=== PATIENT | female | born 1975 | race Two or more races ===

== ENCOUNTER 2024-09-14 11:28 | Emergency (ER) | payer OTHER, SELFPAY ==
--- NOTE | ~2024-09-14 | XR_ITS ---
CLINICAL HISTORY: cough 2 view chest x-ray Comparison: None Findings: The lungs are clear. Normal size heart. No acute fracture. IMPRESSION: 1. No acute findings. This document has been electronically signed by: Brionna Chaudhary MD on 09/14/2024 12:59:34
[2024-09-14 11:42] VITALS: BP 128/96; PULSE 67; RESP 18; TEMP 36.8; O2SAT 100; BMI 20.2
--- NOTE | 2024-09-14 11:45 | ED.GENADULT ---
HPI - General Adult General Chief complaint: Upper Respiratory Symptoms Stated complaint: back pain, cough, sob Time Seen by Provider: 09/14/24 15:09 Source: patient Mode of arrival: ambulatory Limitations: no limitations History of Present Illness ED Provider: soheila crockett pa-c HPI narrative: 48 year old female with no significant pmhx presents to the ED today for evaluation of dry cough, subjective fevers, and chills x3 days. No known sick contacts. She did take a negative COVID test 3 days ago. She also reports lower back pain. No known injury, trauma, fall. Denies dysuria, hematuria, abdominal pain, N/V/D. Related Data Previous Rx's ?Medication ?Instructions ?Recorded benzonatate 100 mg capsule 100 mg PO BID PRN cough #20 caps 09/14/24 nitrofurantoin 100 mg PO BID 7 days #14 caps 09/14/24 monohydrate/macrocrystals 100 mg capsule oseltamivir 75 mg capsule (Tamiflu) 75 mg PO BID 5 days #10 caps 09/14/24 Allergies Allergy/AdvReac Type Severity Reaction Status Date / Time latex [Latex] Allergy Intermediate RASH Verified 09/14/24 11:44 FRUIT Allergy Unknown RASH, Uncoded 05/13/20 16:50 DIFFICULTY BREATHING Review of Systems Review of Systems: Constitutional: No fever, fatigue, night sweats, weight changes, +chills ENT/Mouth: No ear pain, hearing loss, nasal congestion, sinus pain, rhinorrhea, sore throat Eyes: No eye pain, swelling, redness, vision changes, discharge Cardio: No chest pain, palpitations, BELCHER, orthopnea, peripheral edema Pulm: No SOB, cough, sputum, wheezing, dyspnea, hemoptysis, +cough GI: No nausea, vomiting, hematemesis, abdominal pain, diarrhea, constipation, hematochezia, melena : No irregular bleeding, dysuria, frequency, urgency, hesitancy, hematuria, flank pain, urinary flow changes, urinary incontinence or retention MSK: No neck pain, joint pain, myalgias, +back pain Skin: No lesions, rashes Neuro: No weakness, numbness, paresthesias, LOC, dizziness, headache Psych: No anxiety/panic, depression, SI/HI, AH/VH All other systems reviewed and are negative. [facility] Past Medical History Attestation statement: The following information was validated with the patient. Source: old records reviewed and nursing notes reviewed Social History Social History Advance Directives: No Advance Directives Information Provided: No Physical Exam ED Vital Signs: Vital Signs - 24 hr 09/14/24 11:42 09/14/24 15:49 Temperature 98.3 F 98.3 F Pulse Rate 67 67 Respiratory Rate 18 18 Blood Pressure 128/96 H 128/96 H Pulse Oximetry 100 100 Oxygen Delivery Method Room Air Room Air BMI result Body Mass Index 20.2 Vital signs stable General: Well appearing, in no acute distress. Skin: Warm, dry, intact. No rashes or lesions. Head: Normocephalic, atraumatic. EENT: Hearing is intact b/l. Conjunctiva clear. PERRLA. Moist mucous membranes.? Posterior oropharynx without erythema or edema. No tonsillar exudates or masses. Uvula midline. Controlling secretions and speaking in complete sentences. Neck: Supple without LAD Cardiac: Chest wall symmetric. RRR Lungs: Normal respiratory effort without accessory muscle use. CTA bilaterally. No rales, rhonchi, or wheezes.? Abdomen: Soft, non-tender, non-distended. No rebound tenderness or guarding. Positive BS x4. No CVAT. Back: No midline spinous or paraspinal tenderness. No step off deformity. Ext: Upper and lower extremities atraumatic, without tenderness, deformity, swelling or erythema. Full ROM throughout. Neuro: AOx3. Normal speech. Strength 5/5 intact throughout. Sensation intact to light touch. NV intact distally. Reflexes 2+ bilaterally. Ambulating with steady gait. Psych: Appropriate mood and affect. Responds appropriately to questions. Course Course Course Narrative: CBC without leukocytosis or left shift. No anemia. H&H stable. Chemistry without acute electrolyte abnormality requiring intervention. No DEANDRE. Liver function slightly elevated. Urine positive for infection. She tested positive for influenza A. Negative for COVID, RSV. Chest x-ray does not demonstrate pneumonia. > discussed all workup results with patient. After discussion, she was opted to start Tamiflu which has been sent to her pharmacy. Dinh Rodriguez sent to pharmacy for cough. Nitrofurantoin sent to pharmacy for UTI. advised to f/u with PCP. Patient has remained stable throughout ED visit today. Discussed worrisome signs and symptoms and when to return to the ED. All questions answered at this time. Patient is agreeable with disposition and stable for discharge. Medical Decision Making Medical Decision Making [facility] Narrative: 48 year old female with no significant pmhx presents to the ED today for evaluation of dry cough, subjective fevers, and chills x3 days. Patient is hypertensive. Afebrile. She is nontoxic-appearing and in no acute distress. On exam, lungs are CTA bilaterally. no signs of respiratory distress. Abdominal exam benign. There is no CVAT bilaterally. No midline spinous tenderness or step-off deformity. Neurovascularly intact distally. Differential diagnosis includes viral syndrome, strep throat, headache, migraine, pneumonia, bronchitis, UTI, renal colic, nephrolithiasis, MSK sprain/strain. 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 Plan for basic labs, viral swabs, urinalysis, chest x-ray and re-evaluation. Differential Diagnosis Differential Diagnoses: The differential diagnosis associated with the presentation includes As above Admission/Observation Not indicated Lab Data [facility] Lab Attestation statement: I reviewed the patient's lab results. As above 09/14/24 13:09 09/14/24 13:09 Labs: Lab Results 09/14/24 Range/Units 13:09 WBC 4.2 L (4.8-10.8) X10*3/uL RBC 4.60 (4.20-5.50) X10*6/uL Hgb 13.6 (12.0-16.0) g/dl Hct 39.8 (37.0-47.0) % MCV 86.5 (80.0-98.0) fL MCH 29.6 (27.0-33.0) pg MCHC 34.2 (31.0-35.0) g/dl RDW 13.2 (11.0-16.0) % Plt Count 203 (160-400) X10*3/uL MPV 10.2 (9.4-12.3) fL Immature Gran % (Auto) 0.2 (0.0-0.4) % Neut % (Auto) 59.2 (45-73) % Lymph % (Auto) 21.5 (20-40) % [place] % (Auto) 18.6 H (2-11) % Eos % (Auto) 0.0 (0-4) % Baso % (Auto) 0.5 (0-2) % Lymph # (Auto) 0.9 L (1.2-4.9) X10*3/uL [place] # (Auto) 0.8 (0.1-1.2) X10*3/uL Eos # (Auto) 0.0 (0.0-0.4) X10*3/uL Baso # (Auto) 0.0 (0.0-0.2) X10*3/uL Abs Immat Gran (auto) 0.01 (0.00-0.03) X10*3/uL Absolute Neuts (auto) 2.5 (2.0-8.3) x10*3/uL Absolute Nucleated RBC 0.000 (0.0-0.012) X10*3/uL Nucleated RBC % (auto) 0.0 (0.0-0.2) /100WBC Sodium 139 (135-145) mmol/L Potassium 4.4 (3.3-5.1) mmol/L Chloride 104 (96-108) mmol/L Carbon Dioxide 27 (22-29) mmol/L Anion Gap 12 (12-20) BUN 11 (9-16) mg/dL Creatinine 0.71 (0.5-1.4) mg/dL Estim Creat Clear Calc 88.9 Estimated GFR > 60 Random Glucose 94 (60-115) mg/dL Calcium 9.0 (8.4-10.2) mg/dL Magnesium 2.1 (1.6-2.6) mg/dL Total Bilirubin 0.4 (0.0-1.0) mg/dL AST 46 H (5-31) U/L ALT 49 H (0-31) U/L Alkaline Phosphatase 83 (39-117) U/L Total Protein 7.9 (6.5-8.0) g/dL Albumin 4.3 (3.5-5.0) g/dL Urine Color Yellow Urine Appearance Cloudy Urine pH 6.0 (5.0-9.0) Ur Specific Stokes 1.010 (1.005-1.025) Urine Protein Negative (Neg-Trace) mg/dL Urine Glucose (UA) Negative (Negative) mg/dL Urine Ketones Negative (Negative) mg/dL Urine Blood Small (1+) H (Negative) Urine Nitrite Negative (Negative) Ur Leukocyte Esterase Large (3+) H (Negative) Urine RBC 0-2 (0-2) /HPF Urine WBC 21-50 H (0-5) /HPF Ur Squamous Epith Cells 6-10 (0-2) /HPF Urine Bacteria 2+ (None Seen) Hyaline Casts 0-2 (0-2) /LPF Influenza Type A (PCR) POSITIVE A (Negative) Influenza Type B (PCR) NEGATIVE (Negative) RSV RNA Qual (PCR) NEGATIVE (Negative) SARS-CoV-2 RNA (RT-PCR) NEGATIVE (Negative) Independent Interpretation I performed an independent interpretation of an: Plain X-Ray Interpretation: cxr without infiltrate or consolidation Radiology Impression Discussion of test interpretation with radiology: I have reviewed the radiologist's reading. Radiologist Impression: Ordering Physician: Soheila Crockett Date of Service: 09/14/24 Procedure(s): XR chest 2V Accession Number(s): [id number] cc: Physician,None ; Soheila Crockett~ CLINICAL HISTORY: cough 2 view chest x-ray Comparison: None Findings: The lungs are clear. Normal size heart. No acute fracture. IMPRESSION: 1. No acute findings. This document has been electronically signed by: Brionna Chaudhary MD on 09/14/2024 12:59:34 External Record Review External record reviewed: Inpatient record Social Determinants Patient?s care significantly limited by Social Determinants of Health including: Other Social Determinant of Health Critical Care Time Critical Care Time Critical Care Time: No Discharge Plan Discharge Clinical Impression: Influenza A, Urinary tract infection Patient Disposition: Home, Self-Care Instructions: Urinary Tract Infection in Women (ED), Influenza (ED) Additional Instructions: You tested positive for influenza a today. This is contagious. You have opted to be treated with Tamiflu. This has been sent to your pharmacy. I have also send Tesleatha Rodriguez to help with your cough. Your blood work is reassuring. Your chest x-ray does not demonstrate pneumonia. Your urine does show infection and thus she will be treated with antibiotics. Nitrofurantoin is an antibiotic that has been sent to your pharmacy. Take this as prescribed and do not miss any doses. You must complete the entire course of antibiotics. If you do not, there is a risk of the infection coming back or worsening. Follow up with your primary care provider as needed. If you develop a fever or new/ worsening symptoms call 911 or come back to the ER for further evaluation. Prescriptions: New benzonatate 100 mg capsule 100 mg PO BID PRN (Reason: cough) Qty: 20 0RF oseltamivir [Tamiflu] 75 mg capsule 75 mg PO BID 5 Days Qty: 10 0RF nitrofurantoin monohyd/m-cryst 100 mg capsule 100 mg PO BID 7 Days Qty: 14 0RF Rx Instructions: must administer with a meal/food Stand Alone Forms: Work/School Release Interventions: ED Discharge Assessment Last Done: 09/14/24 15:49 Discharge Date/Time: 09/14/24 15:50 Print Language: Thai
[2024-09-14 13:14] LABS: MANUAL DIFF FLAG NO
[2024-09-14 13:15] LABS: Basophils Percent Auto 0.5 % (0-2); Hematocrit 39.8 % (37.0-47.0); Hemoglobin 13.6 g/dl (12.0-16.0); Imm Gran Abs Auto 0.01 X10*3/uL (0.00-0.03); Imm Gran Pct Auto 0.2 % (0.0-0.4); Lymphocytes Absolute Auto 0.9 X10*3/uL (1.2-4.9); Lymphocytes Percent Auto 21.5 % (20-40); Mean Corpuscular HGB Conc 34.2 g/dl (31.0-35.0); Mean Corpuscular Hemoglobin 29.6 pg (27.0-33.0); Mean Corpuscular Volume 86.5 fL (80.0-98.0); Mean Platelet Volume 10.2 fL (9.4-12.3); Monocytes Absolute Auto 0.8 X10*3/uL (0.1-1.2); Monocytes Percent Auto 18.6 % (2-11); Neutrophils Absolute Auto 2.5 x10*3/uL (2.0-8.3); Neutrophils Percent Auto 59.2 % (45-73); Platelet Count 203 X10*3/uL (160-400); Red Cell Distribution Width 13.2 % (11.0-16.0); White Blood Count 4.2 X10*3/uL (4.8-10.8)
[2024-09-14 13:16] LABS: Appearance Urine Cloudy; Color Urine Yellow; Glucose Urine UA Negative (Negative); Leukocyte Esterase Urine Large (3+) (Negative); Nitrite Urine Negative (Negative); UMIC TRIGGER UACC YES; Urine Blood Small (1+) (Negative); Urine Ketones Negative (Negative); Urine Protein Negative (Neg-Trace)
[2024-09-14 13:28] LABS: Bacteria Urine 2+ (None Seen); Hyaline Casts Urine 0-2 /LPF (0-2); RBC Urine 0-2 /HPF (0-2); UACC Culture Trigger YES; WBC Urine 21-50 /HPF (0-5)
[2024-09-14 13:32] LABS: Alanine Aminotransferase 49 U/L (0-31); Albumin Level 4.3 g/dL (3.5-5.0); Alkaline Phosphatase 83 U/L (39-117); Anion Gap 12 (12-20); Aspartate Amino Transferase 46 U/L (5-31); Bilirubin Total 0.4 mg/dL (0.0-1.0); Blood Urea Nitrogen 11 mg/dL (9-16); Carbon Dioxide 27 mmol/L (22-29); Chloride 104 mmol/L (96-108); Creatinine Clr Calc Pharmacy 88.9; Estimated Glomerular Filt Rate > 60; Glucose Random 94 mg/dL (60-115); Magnesium 2.1 mg/dL (1.6-2.6); Potassium 4.4 mmol/L (3.3-5.1); Sodium 139 mmol/L (135-145); Total Protein 7.9 g/dL (6.5-8.0)
[2024-09-14 13:54] LABS: Influenza A PCR POSITIVE (Negative); Influenza B PCR NEGATIVE (Negative); Resp Syncy Virus RNA Qual PCR NEGATIVE (Negative); SARS COV2 PCR INHOUSE NEGATIVE (Negative)
[2024-09-14 15:49] VITALS: BP 128/96; PULSE 67; RESP 18; TEMP 36.8; O2SAT 100
== END 2024-09-14 15:50 | disposition home or self-care (01) ==
PROVIDERS: Physician Assistant Medical; Emergency Provider Emergency Medicine
DX: J10.1 Influenza due to other identified influenza virus with other respiratory manifestations (principal); N39.0 Urinary tract infection, site not specified; M54.50 Low back pain, unspecified; R05.9 Cough, unspecified; R06.02 Shortness of breath; R50.9 Fever, unspecified; Z03.818 Encounter for observation for suspected exposure to other biological agents ruled out
CPT/HCPCS: 0241U; 71046; 80053; 81001; 83735; 85025; 87086; 99282; 99283

== ENCOUNTER → 2024-09-14 11:44 | Outpatient (BNV) | payer OTHER, SELFPAY | PROVIDERS: Visit Provider Nuclear Medicine | DX: R05.9 Cough, unspecified (principal) | CPT/HCPCS: 71046 ==

== ENCOUNTER 2024-11-14 19:51 | Emergency (ER) | payer MEDICAID, SELFPAY ==
--- NOTE | ~2024-11-14 | XR_ITS ---
CLINICAL HISTORY: cough, sob, cp 2 view chest x-ray. Comparison: CR - XR CHEST 2V - 09/14/24 12:34 EST Findings: Normal lung volumes. Lungs are clear. No pneumothorax or pleural effusion. Heart size normal. No passive venous congestion. No midline shift or tracheal deviation. No acute fracture. Impression: 1. No acute cardiopulmonary disease. This document has been electronically signed by: Bandar Ordonez MD on 11/14/2024 21:30:33
[2024-11-14 19:56] VITALS: BP 147/83; PULSE 72; RESP 18; TEMP 36.9; O2SAT 99; BMI 21.3
--- NOTE | 2024-11-14 19:56 | ED_ITS ---
HPI - Chest Pain General Chief Complaint: Upper Respiratory Symptoms Stated Complaint: SOB, cough Time Seen by Provider: 11/14/24 22:09 Source: patient Mode of arrival: ambulatory Limitations: no limitations History of Present Illness ED Provider: CHAITANYA WARE PA-C HPI narrative: 49 year old female with pmhx significant for HTN and bradycardia presents to the ED today for evaluation of cough productive of yellow/brown sputum, chest tightness on coughing, nasal congestion, and headache x5 days. 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 Denies fever, chills, sore throat, chest pain, hemoptysis, SOB, wheezing. No recent travel. Vaccinations UTD. Related Data Previous Rx's ?Medication ?Instructions ?Recorded benzonatate 100 mg capsule 100 mg PO BID PRN cough #20 caps 09/14/24 nitrofurantoin 100 mg PO BID 7 days #14 caps 09/14/24 monohydrate/macrocrystals 100 mg capsule oseltamivir 75 mg capsule (Tamiflu) 75 mg PO BID 5 days #10 caps 09/14/24 azithromycin 250 mg tablet See Rx Instructions PO .COMPLEX #6 11/14/24 tabs guaifenesin 200 mg tablet 200 mg PO TID PRN cough #10 tabs 11/14/24 prednisone 20 mg tablet 40 mg (2 x 20 mg) PO DAILY 5 days 11/14/24 #10 tabs Allergies Allergy/AdvReac Type Severity Reaction Status Date / Time latex [Latex] Allergy Intermediate RASH Verified 11/14/24 19:58 FRUIT Allergy Unknown RASH, Uncoded 11/14/24 19:58 DIFFICULTY BREATHING Review of Systems 2 Review of Systems: Yes all other systems are reviewed and are negative [facility] Past Medical History Attestation statement: The following information was validated with the patient. Source: old records reviewed and nursing notes reviewed Social History Social History Smoked in Last 30 Days: No Use of substances other than those prescribed or required for medical reasons: Yes Substance Use Type: Marijuana Advance Directives: No Advance Directives Information Provided: No Patient : No Physical Exam 2 Vital Signs: Vital Signs: Last Vital Signs Temp 98.5 F 11/14/24 23:07 Pulse 57 11/14/24 23:07 Resp 18 11/14/24 23:07 BP 135/82 11/14/24 23:07 Pulse Ox 98 11/14/24 23:07 O2 Del Method Room Air 11/14/24 23:07 BMI result Body Mass Index 21.3 vitals stable. afebrile. not hypoxic. General: Well appearing, in no acute distress. Skin: Warm, dry, intact. No rashes or lesions. Head: Normocephalic, atraumatic. EENT: Hearing is intact b/l. Conjunctiva clear. PERRLA. EOM intact. Moist mucous membranes.? Neck: Supple without LAD Cardiac: Chest wall symmetric. RRR Lungs: Normal respiratory effort without accessory muscle use. CTA bilaterally. No rales, rhonchi, or wheezes.? Ext: Upper and lower extremities atraumatic, without tenderness, deformity, swelling or erythema. Neuro: AOx3. Normal speech. Ambulating with steady gait. Course Course Course Narrative: This is a Rapid Medical Exam performed in triage by Mayda Krueger PA-C. Full HPI, ROS and PE to be performed by primary ED provider. 49yo F w/pmhx HTN, bradycardia presenting to the ED c/o chest tightness, SOB, congestion, cough, HERNÁNDEZ, & R hand numbness x3 days. Has been out of Rx meds x months after moving PE: lungs CTA, dry cough noted, nontoxic appearing Plan: EKG, labs, CXR, SARs Reevaluation(s) Reevaluation #1: CBC without leukocytosis or left shift. no anemia, h&h stable. bmp w/o acute electrolyte abnormality requiring intervention. magnesium wnl. trop undetectable. ekg showing sinus bradycardia, no acute ischemic changes. ACS unlikely. negative covid, flu, rsv, strep. cxr without pneumonia or effusion. > plan to treat for bronchitis. prednisone, guafenesin, zpack sent to pharmacy. Patient has remained stable throughout ED visit today. Discussed worrisome signs and symptoms and when to return to the ED. All questions answered at this time. Patient is agreeable with disposition and stable for discharge. Medical Decision Making Medical Decision Making MDM Narrative: 49 year old female with pmhx significant for HTN and bradycardia presents to the ED today for evaluation of cough productive of yellow/brown sputum, chest tightness on coughing, nasal congestion, and headache x5 days. vitals are stable. she is not hypoxic, afebrile. she is nontoxic appearing and in NAD. no respiratory distress. lungs are CTA w/o adventitious breath sounds. Differential diagnosis includes viral syndrome, bronchitis, pneumonia. Lower suspicion for ACS. PERC 0 - PE unlikely. Labs, ekg, cxr, and viral swabs obtained from triage - plan to review. Differential Diagnosis Differential Diagnoses: The differential diagnosis associated with the presentation includes as above. Admission/Observation not indicated. Lab Data MDM Lab Attestation statement: I reviewed the patient's lab results. as above. 11/14/24 20:13 11/14/24 20:13 Labs: Lab Results 11/14/24 11/14/24 Range/Units 04:31 20:13 WBC 6.0 (4.8-10.8) X10*3/uL RBC 4.32 (4.20-5.50) X10*6/uL Hgb 12.7 (12.0-16.0) g/dl Hct 36.8 L (37.0-47.0) % MCV 85.2 (80.0-98.0) fL MCH 29.4 (27.0-33.0) pg MCHC 34.5 (31.0-35.0) g/dl RDW 13.1 (11.0-16.0) % Plt Count 188 (160-400) X10*3/uL MPV 11.0 (9.4-12.3) fL Immature Gran % (Auto) 0.5 H (0.0-0.4) % Neut % (Auto) 50.0 (45-73) % Lymph % (Auto) 36.1 (20-40) % Andrews % (Auto) 8.7 (2-11) % Eos % (Auto) 4.0 (0-4) % Baso % (Auto) 0.7 (0-2) % Lymph # (Auto) 2.2 (1.2-4.9) X10*3/uL [place] # (Auto) 0.5 (0.1-1.2) X10*3/uL Eos # (Auto) 0.2 (0.0-0.4) X10*3/uL Baso # (Auto) 0.0 (0.0-0.2) X10*3/uL Abs Immat Gran (auto) 0.03 (0.00-0.03) X10*3/uL Absolute Neuts (auto) 3.0 (2.0-8.3) x10*3/uL Absolute Nucleated RBC 0.000 (0.0-0.012) X10*3/uL Nucleated RBC % (auto) 0.0 (0.0-0.2) /100WBC Sodium 140 (135-145) mmol/L Potassium 3.9 (3.3-5.1) mmol/L Chloride 105 (96-108) mmol/L Carbon Dioxide 27 (22-29) mmol/L Anion Gap 12 (12-20) BUN 8 L (9-16) mg/dL Creatinine 0.79 (0.5-1.4) mg/dL Estim Creat Clear Calc 82.4 Estimated GFR > 60 Random Glucose 103 (60-115) mg/dL Calcium 8.9 (8.4-10.2) mg/dL Magnesium 1.9 (1.6-2.6) mg/dL Total Bilirubin 0.2 (0.0-1.0) mg/dL Direct Bilirubin < 0.2 (0.0-0.5) mg/dL AST 25 (5-31) U/L ALT 19 (0-31) U/L Alkaline Phosphatase 86 (39-117) U/L Troponin I High Sens < 2.7 (<3.5-17.0) ng/L Total Protein 7.0 (6.5-8.0) g/dL Albumin 3.8 (3.5-5.0) g/dL Influenza Type A (PCR) NEGATIVE (Negative) Influenza Type B (PCR) NEGATIVE (Negative) RSV RNA Qual (PCR) NEGATIVE (Negative) SARS-CoV-2 RNA (RT-PCR) NEGATIVE (Negative) S. pyogenes GrpA EARL Negative (Negative) Independent Interpretation I performed an independent interpretation of an: EKG and Plain X-Ray Interpretation: CXR without focal consolidation or infiltrate EKG showing sinus bradycardia w/ rate of 57bpm, no acute ischemic changes or ST elevations Radiology Impression Discussion of test interpretation with radiology: I have reviewed the radiologist's reading. Radiologist Impression: [address] [address] XRay Report Signed Patient: Carolyn Mauricio MR#: [id number] : 1975 Acct:[id number] Age/Sex: 49 / F ADM Date: 11/14/24 Loc: HO.ED Attending Dr: Ordering Physician: Mayda Krueger Date of Service: 11/14/24 Procedure(s): XR chest 2V Accession Number(s): [id number] cc: Physician,None ; Mayda Krueger~ CLINICAL HISTORY: cough, sob, cp 2 view chest x-ray. Comparison: CR - XR CHEST 2V - 09/14/24 12:34 EST Findings: Normal lung volumes. Lungs are clear. No pneumothorax or pleural effusion. Heart size normal. No passive venous congestion. No midline shift or tracheal deviation. No acute fracture. Impression: 1. No acute cardiopulmonary disease. This document has been electronically signed by: Bandar Ordonez MD on 11/14/2024 21:30:33 External Record Review External record reviewed: Inpatient record Prescription Management I considered prescription management with: Antibiotic (zpak) and Other (guafenesin, prednisone) Chronic Conditions Patient?s care impacted by: Hypertension Social Determinants Patient?s care significantly limited by Social Determinants of Health including: Other Social Determinant of Health Critical Care Time Critical Care Time Critical Care Time: No Discharge Plan Discharge Clinical Impression: Bronchitis Patient Disposition: Home, Self-Care Instructions: Acute Bronchitis (ED) Additional Instructions: Your blood work today is reassuring. You tested negative for COVID, flu, RSV. Your chest x-ray does not show pneumonia. You are being treated for bronchitis. Prednisone as a steroid that has been sent to your pharmacy. Take this as prescribed over the next 5 days. Azithromycin as an antibiotic that has been sent to your pharmacy. Take this as prescribed over the next 5 days. Guaifenesin has been sent to your pharmacy for you to take for cough. Follow up with outpatient providers. Return with new or worsening symptoms. In the case of an emergency call 911. Prescriptions: New azithromycin 250 mg tablet See Rx Instructions .ROUTE .COMPLEX Qty: 6 0RF Rx Instructions: For 250 mg dose pack: take 500 mg today (day 1), then 250 mg for 4 days (days 2-5) guaifenesin 200 mg tablet 200 mg PO TID PRN (Reason: cough) Qty: 10 0RF prednisone 20 mg tablet 40 mg PO DAILY 5 Days Qty: 10 0RF No Action benzonatate 100 mg capsule 100 mg PO BID PRN (Reason: cough) Qty: 20 0RF oseltamivir [Tamiflu] 75 mg capsule 75 mg PO BID 5 Days Qty: 10 0RF nitrofurantoin monohyd/m-cryst 100 mg capsule 100 mg PO BID 7 Days Qty: 14 0RF Rx Instructions: must administer with a meal/food Referrals: Physician,None [Primary Care Provider] - Stand Alone Forms: Work/School Release Interventions: ED Discharge Assessment Last Done: 11/14/24 23:07 Discharge Date/Time: 11/14/24 23:07 Print Language: Kuwaiti
--- NOTE | 2024-11-14 19:58 | ECG_ITS ---
Test Reason : CHEST PAIBN Blood Pressure : */* mmHG Vent. Rate : 57 BPM Atrial Rate : 57 BPM P-R Int : 136 ms QRS Dur : 84 ms QT Int : 432 ms P-R-T Axes : 50 83 41 degrees QTcB Int : 420 ms Sinus bradycardia Otherwise normal ECG When compared with ECG of 01-Apr-2009 22:06, No significant change was found Referred By: Mayda Krueger Electronically Signed By: Kee Corea
[2024-11-14 20:23] LABS: MANUAL DIFF FLAG NO
[2024-11-14 20:34] LABS: IDNOW Serial# 58CA691E; Strep A Nucleic Acid Negative (Negative)
[2024-11-14 20:42] LABS: Alanine Aminotransferase 19 U/L (0-31); Albumin Level 3.8 g/dL (3.5-5.0); Alkaline Phosphatase 86 U/L (39-117); Anion Gap 12 (12-20); Aspartate Amino Transferase 25 U/L (5-31); Bilirubin Direct < 0.2 mg/dL (0.0-0.5); Bilirubin Total 0.2 mg/dL (0.0-1.0); Blood Urea Nitrogen 8 mg/dL (9-16); Calcium 8.9 mg/dL (8.4-10.2); Carbon Dioxide 27 mmol/L (22-29); Chloride 105 mmol/L (96-108); Creatinine Clr Calc Pharmacy 82.4; Estimated Glomerular Filt Rate > 60; Glucose Random 103 mg/dL (60-115); Magnesium 1.9 mg/dL (1.6-2.6); Potassium 3.9 mmol/L (3.3-5.1); Sodium 140 mmol/L (135-145)
[2024-11-14 20:44] LABS: Basophils Percent Auto 0.7 % (0-2); Eosinophils Absolute Auto 0.2 X10*3/uL (0.0-0.4); Hematocrit 36.8 % (37.0-47.0); Hemoglobin 12.7 g/dl (12.0-16.0); Imm Gran Abs Auto 0.03 X10*3/uL (0.00-0.03); Imm Gran Pct Auto 0.5 % (0.0-0.4); Lymphocytes Absolute Auto 2.2 X10*3/uL (1.2-4.9); Lymphocytes Percent Auto 36.1 % (20-40); Mean Corpuscular HGB Conc 34.5 g/dl (31.0-35.0); Mean Corpuscular Hemoglobin 29.4 pg (27.0-33.0); Mean Corpuscular Volume 85.2 fL (80.0-98.0); Monocytes Absolute Auto 0.5 X10*3/uL (0.1-1.2); Monocytes Percent Auto 8.7 % (2-11); Platelet Count 188 X10*3/uL (160-400); Red Blood Count 4.32 X10*6/uL (4.20-5.50); Red Cell Distribution Width 13.1 % (11.0-16.0)
[2024-11-14 20:49] LABS: Troponin-I High Sensitivity < 2.7 ng/L (<3.5-17.0)
[2024-11-14 21:04] LABS: Influenza A PCR NEGATIVE (Negative); Influenza B PCR NEGATIVE (Negative); Resp Syncy Virus RNA Qual PCR NEGATIVE (Negative); SARS COV2 PCR INHOUSE NEGATIVE (Negative)
[2024-11-14 21:28] VITALS: BP 135/82; PULSE 57; RESP 18; TEMP 36.9; O2SAT 98
[2024-11-14 23:07] VITALS: BP 135/82; PULSE 57; RESP 18; TEMP 36.9; O2SAT 98
== END 2024-11-14 23:07 | disposition home or self-care (01) ==
PROVIDERS: Physician Assistant; Emergency Provider Emergency Medicine
DX: J40 Bronchitis, not specified as acute or chronic (principal); R07.89 Other chest pain; R00.1 Bradycardia, unspecified; R06.02 Shortness of breath; R05.9 Cough, unspecified; R09.81 Nasal congestion; R20.0 Anesthesia of skin; Z03.818 Encounter for observation for suspected exposure to other biological agents ruled out
CPT/HCPCS: 0241U; 71046; 80048; 80076; 83735; 84484; 85025; 87651; 93005; 99283; 99284

== ENCOUNTER → 2024-11-14 19:58 | Outpatient (BNV) | payer MEDICAID, SELFPAY | PROVIDERS: Visit Provider Radiology Diagnostic Radiology | DX: R05.9 Cough, unspecified (principal); R06.02 Shortness of breath; R07.9 Chest pain, unspecified | CPT/HCPCS: 71046 ==

== ENCOUNTER → 2024-11-14 19:58 | Outpatient (BNV) | payer MEDICAID, SELFPAY | PROVIDERS: Emergency Provider Emergency Medicine; Visit Provider Internal Medicine Cardiovascular Disease | DX: R00.1 Bradycardia, unspecified (principal) | CPT/HCPCS: 93010 ==

== ENCOUNTER 2024-11-25 15:02 | Outpatient (REF) | payer MEDICAID, SELFPAY ==
[2024-11-25 16:07] LABS: MANUAL DIFF FLAG NO
[2024-11-25 16:37] LABS: Basophils Absolute Auto 0.1 X10*3/uL (0.0-0.2); Basophils Percent Auto 0.8 % (0-2); Eosinophils Absolute Auto 0.2 X10*3/uL (0.0-0.4); Eosinophils Percent Auto 3.2 % (0-4); Imm Gran Abs Auto 0.02 X10*3/uL (0.00-0.03); Imm Gran Pct Auto 0.3 % (0.0-0.4); Lymphocytes Absolute Auto 2.9 X10*3/uL (1.2-4.9); Lymphocytes Percent Auto 48.8 % (20-40); Mean Corpuscular HGB Conc 33.3 g/dl (31.0-35.0); Mean Corpuscular Volume 87.1 fL (80.0-98.0); Mean Platelet Volume 11.2 fL (9.4-12.3); Monocytes Absolute Auto 0.5 X10*3/uL (0.1-1.2); Monocytes Percent Auto 8.6 % (2-11); Neutrophils Absolute Auto 2.3 x10*3/uL (2.0-8.3); Neutrophils Percent Auto 38.3 % (45-73); Platelet Count 238 X10*3/uL (160-400); Red Blood Count 4.82 X10*6/uL (4.20-5.50); Red Cell Distribution Width 12.9 % (11.0-16.0); White Blood Count 5.9 X10*3/uL (4.8-10.8)
--- OUTSIDE RECORDS SUMMARY | 2024-11-25 17:52 | XMS_ITS | Clinical Summary ---
Author Organization [facility] Address [address] [place] [address] Care Team Providers Care Semiautomatic Stitcher Operator Name Role Phone Unknown Primary Care Provider [phone] Allergies Active Allergy Reactions Criticality Noted Date Comments Avocado Hives Medium 11/14/2022 Banana Hives Medium 11/14/2022 Cheyenne Hives Medium 11/14/2022 Latex Hives Medium 11/14/2022 Dani Hives Medium 11/14/2022 Medications Medication Sig Dispensed Refills Start Date End Date Status amoxicillin (AMOXIL) 500 MG capsule Take 1 capsule (500 mg total) by mouth 2 (two) times a day. 20 capsule 12/06/2022 Active Social History Tobacco Use Types Packs/Day Years Used Date Smoking Tobacco: Former Cigarettes Smokeless Tobacco: Never Tobacco Cessation:Counseling Given: Not Answered Sex and Gender Information Value Date Recorded Sex Assigned at Female 12/06/2022 12:53 PM EDT Gender Identity Female 12/06/2022 12:53 PM EDT Sexual Orientation Choose not to disclose 2022 12:53 PM EDT Last Filed Vital Signs Vital Sign Reading Time Taken Comments Blood Pressure 139/84 12/06/2022 4:56 PM EDT Pulse 76 12/06/2022 4:56 PM EDT Temperature 36.3 ??C (97.4 ??F) 12/06/2022 4:56 PM ED T Respiratory Rate 18 12/06/2022 4:56 PM EDT Oxygen Saturation 100% 12/06/2022 4:56 PM EDT Inhaled Oxygen Concentration - - Weight - - Height - - Body Mass Index - - Plan of Treatment Health Maintenance Due Date Last Done Comments Hepatitis C Virus Screening 1975 HIV Screening 1990 DTaP/Tdap/Td Vaccines (1 - Tdap) 1996 Hepatitis B Vaccines (1 of 3 - 19+ 3-dose series) 1996 Pap Smear (Ages 21-65) 1998 Mammogram 2017 Colonoscopy 2022 Influenza Vaccine 03/27/2024 COVID-19 Vaccine (1 - 2023-2 5 season) 2024 Pneumococcal Vaccine: Pediat rubén (0-5 Years) and At-Risk Patients (6 to 49 Years) Aged Out No longer eligible b ased on patient's age to complete this topic Care Teams Semiautomatic Stitcher Operator Relationship Specialty Start Date End Date Unknown Unknow Provider Address PCP - General 12/06/22
--- OUTSIDE RECORDS SUMMARY | 2024-11-25 17:52 | XMS_ITS | Continuity of Care Document ---
Author Organization [facility] vices Address [address] [place] [address] Phone Care Team Providers Care Marketing Director Name Role Phone Generic Provider, [facility] Unavailable Unavailabl e Allergies, Adverse Reactions, Alerts Substance Reaction Status Criticality matthew Active No Information avocado Active No Information banana Active No Information Clare And Derivatives Active No In formation latex Active No Information Medications Medication Instructions Dosage Effective Dates (start - stop) Status Comments Vazalore 81 mg capsule take 1 capsule by oral route every day 81 MG - Active arginine (L-arginine) 500 mg tablet [id number] mg twice a day PO - Active [...] Diagnoses Date Provider Providers Copied on Encounter [facility], [address] [place], [address], [place] tel:[phone] [facility] Adult Medicine No Information 4 Generic Provider [facility]. . [facility], [address] [place], [address], [place] tel:[phone] [facility] Dental No Information 3 Andres Grimes. [address] [facility], [id number] [place], [place], [id number], [place]. 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 [address] [facility], [id number] [place], [address], [place]. tel:[phone] OFFICE/OUTPT Visit, NEW - Mod MDM, 45 - 59 Minutes [facility], [address] [place] [address], [address], [place] tel:[phone] [facility] Adult Medicine ESTABLISH CARE (chief complaint) Body [...] relative Payers Payer name Insurance type Covered libertarian ID Miller doss(s) D Medicaid [id number] Social History Type Description Quantity Date Captured [...] completed Referral Ordered: Referrals: Location: [facility] Dental ordered Referral Ordered: Referrals: Location: [facility] Behavioral Health ordered History Of Present Illness Encounter Date Complaint History Of Prese 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
--- OUTSIDE RECORDS SUMMARY | 2024-11-25 17:52 | XMS_ITS ---
Author Name [facility] Organization Unknown Encounters Encounter Type Encounter Reason Primary Diagnosis Location Date Emergency Acute pharyngiti s, unspecified [facility] 12/06/2022 Care Team Organization Name Specialty Phone Email Start Date End [facility] [place] [facility] 05/19/2023 024 [facility] 12/06/2022 12/06/2022 [facility] 12/06/2022 [facility] 07/16/2022
[2024-11-25 18:04] LABS: Alanine Aminotransferase 17 U/L (0-31); Albumin Level 4.1 g/dL (3.5-5.0); Alkaline Phosphatase 80 U/L (39-117); Anion Gap 9 (12-20); Aspartate Amino Transferase 23 U/L (5-31); Bilirubin Total 0.3 mg/dL (0.0-1.0); Blood Urea Nitrogen 9 mg/dL (9-16); Calcium 9.4 mg/dL (8.4-10.2); Carbon Dioxide 28 mmol/L (22-29); Chloride 107 mmol/L (96-108); Estimated Glomerular Filt Rate > 60; Glucose Random 102 mg/dL (60-115); Potassium 3.9 mmol/L (3.3-5.1); Sodium 140 mmol/L (135-145); Total Protein 6.9 g/dL (6.5-8.0)
[2024-11-25 18:08] LABS: TSH reflex Free T4 0.67 uIU/mL (0.32-4.0)
== END 2024-11-25 15:03 | disposition home or self-care (01) ==
LOC: HO.HHCL 15:02
PROVIDERS: Visit Provider Internal Medicine
DX: R03.0 Elevated blood-pressure reading, without diagnosis of hypertension (principal)
CPT/HCPCS: 36415; 80053; 84443; 85025

== ENCOUNTER → 2024-11-28 09:50 | Outpatient (REF) | payer MEDICAID, SELFPAY ==
--- OUTSIDE RECORDS SUMMARY | 2024-11-28 11:01 | XMS_ITS | Encounter Summary ---
Author Organization [employer] Address [address] [facility] [address] [place] [address] Care Team Providers Care Business Integration Manager Name Role Phone Unavailable Primary Care Provider Unavailabl e Encounter Details Date Type Department Care Team (Latest Contact Info) Description 11/25/2024 Travel Social History Tobacco Use Types Packs/Day Years Used Date Smoking Tobacco: Former Cigarettes Smokeless Tobacco: Never Alcohol Use Standard Drinks/Week Comments Not Currently 0 (1 standard drink = 0.6 oz pur e alcohol) Comments Unknown Sex and Gender Information Value Date Recorded Sex Assigned at Female 11/25/2024 2:08 PM EDT Legal Sex Female 3:51 PM EST Gender Identity Female 11/25/2024 2:08 PM EDT Sexual Orientation Straight 11/25/2024 2: 08 PM EDT documented as of this encounter Plan of Treatment Upcoming Encounters Date Type Department Care Team (Late st Contact Info) Description 12/09/2024 2:00 PM EDT Clinical Support [facility] [address] [place] [phone] 01/09/2025 9:15 AM EDT Office Visit [facility] [address] [place] [address] Carole Galeas MD [address] [place] [phone] documented as of this encounter Visit Diagnoses Not on filedocumented in this encounter
--- OUTSIDE RECORDS SUMMARY | 2024-11-28 11:01 | XMS_ITS | Continuity of Care Document ---
Author Organization [facility] vices Address [address] [place] [address] Phone Care Team Providers Care Regulatory Auditor Name Role Phone Generic Provider, [facility] Unavailable Unavailabl e Allergies, Adverse Reactions, Alerts Substance Reaction Status Criticality matthew Active No Information avocado Active No Information banana Active No Information [place] And Derivatives Active No In formation latex Active No Information Medications Medication Instructions Dosage Effective Dates (start - stop) Status Comments arginine (L-arginine) 500 mg tablet [id number] mg twice a day PO - Active Vazalore 81 mg capsule take 1 capsule by oral route every day 81 MG - Active Procedures Procedure Date Prophylaxis-Adult Oral [...] Diagnoses Date Provider Providers Copied on Encounter [facility], [address] [place], [address], [place] tel:[phone] [facility] Adult Medicine No Information 4 Generic Provider [facility]. . [facility], [address] [place], [address], [place] tel:[phone] [facility] Dental No Information 3 Andres Grimes. [address] [facility], [id number] [place], [place], [id number], [place]. 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 [address] [facility], [id number] [place], [address], [place]. tel:[phone] OFFICE/OUTPT Visit, NEW - Mod MDM, 45 - 59 Minutes [facility], [address] [place] [address], [address], [place] tel:[phone] [facility] Adult Medicine ESTABLISH CARE (chief complaint) Body [...] relative Payers Payer name Insurance type Covered alliance party ID Miller doss(s) D Medicaid [id number] Social History Type Description Quantity Date Captured [...] and counseling completed Referral Ordered: Referrals: Location: [facility] Dental ordered Referral Ordered: Referrals: Location: [facility] Behavioral Health ordered History Of Present Illness Encounter Date Complaint History Of Prese nt 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 She recently moved back here from [place] but is taking 10 mg of amlodipine [...]
--- OUTSIDE RECORDS SUMMARY | 2024-11-28 11:01 | XMS_ITS | Encounter Summary ---
Author Organization [employer] Address [address] [facility] 7t [place] [address] Care Team Providers Care Caramel Coloring Operator Name Role Phone Unavailable Primary Care Provider Unavailabl e Reason for Referral * Cardiology (Routine) - Authorized Specialty Diagnoses / Procedures Referred By Juan t Referred To Contact Cardiology Diagnoses Sinus bradycardia Procedures Holter monitor - 48 hour Carole Galeas MD [address] [place] [address] Phone: tel: fax: [address] Phone: tel: fax: Referral ID Status Reason Start Date Expiration Date V isits Requested Visits Authorized [id number] Authorized 11/25/2024 11/25/2025 1 1 * Consultation (Routine) - Authorized Specialty Diagnoses / Procedures Referred By Juan amos Referred To Contact Cardiology Diagnoses Sinus bradycardia Carole Galeas MD [address] [place] [address] Phone: tel: fax: [address] Phone: tel: fax: Referral ID Status Reason Start Date Expiration Date Visits Requested Visits Authorized [id number] Authorized Specialty Services Required 11/25/2024 11/25/2025 6 6 Reason for Visit * Reason Comments Hypertension Encounter Details Date Type Department Care Team (Late st Contact Info) Description 11/25/2024 2:20 PM EDT Office Visit [facility] [address] [place], [place] [phone] Carole Galeas MD [address] [place], [place] [phone] Primary hypertension (Primary Dx); Sinus bradycardia; Elevated blood pressure reading Social History Tobacco Use Types Packs/Day Years Used Date Smoking Tobacco: Former Cigarettes Smokeless Tobacco: Never Tobacco Cessation:Counseling Given: Not Answered Alcohol Use Standard Drinks/Week Comments Not Currently 0 (1 standard drink = 0.6 oz pur e alcohol) Comments Unknown Sex and Gender Information Value Date Recorded Sex Assigned at Female 11/25/2024 2:08 PM EDT Legal Sex Female 3:51 PM EST Gender Identity Female 11/25/2024 2:08 PM EDT Sexual Orientation Straight 11/25/2024 2: 08 PM EDT documented as of this encounter Last Filed Vital Signs Vital Sign Reading Time Taken Comments Blood Pressure 168/102 11/25/2024 2:50 PM EDT Pulse 53 11/25/2024 2:14 PM EDT Temperature 36.3 ??C (97.4 ??F) 11/25/2024 2:14 PM ED T Respiratory Rate 18 11/25/2024 2:14 PM EDT Oxygen Saturation 100% 11/25/2024 2:14 PM EDT Inhaled Oxygen Concentration - - Weight 60.2 kg (132 lb 12.8 oz) 11/25/2024 2:14 PM EDT Height - - Body Mass Index - - documented in this encounter Progress Notes * Carole Galeas MD - 11/25/2024 2:20 PM EDT SUBJECTIVE: Carolyn Mauricio is a 49 y.o. 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 Denies recent illness, injury, or hospitalization. PMH HTN, arrhythmia. PSH Cholecystectomy 2021 Hysterectomy+? BSOO 2005 due to endometriosis. 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 She has not been on HRT. Soc Hx she works at [employer]. Lives with her 3 children and her lives in [place]. She hasan ex-smoker, currently smokes THC daily, does not drink alcohol or uses any other recreational substances. FamHx Father from liver CA. Next line mother has HTN and arrhythmia. Maternal aunts had DM, HTN. Meds: None at this time, does not recall the name of the medications. Acute Concerns: Patient concerned regarding elevated BP at home running 160s-200s/90-100 for the past 1 to 2 months. She has been feeling lightheaded with occasional headache especially elevated at night, negative exertional chest pain, BELCHER, blurred vision. She has history of hypertension previously on medication until May when she moved in to [place] and has been out of medications. She does not have history of CAD, CKD, CVA. Social History Social History Narrative Works at [employer]. Lives with adult children ages 19-26 Patient Active Problem List Diagnosis Primary hypertension Sinus bradycardia Family History Problem Relation Name Age of Onset Arrhythmia Mother Other (htn) Mother Review of Systems Constitutional: Negative for chills, fatigue and fever. HENT: Negative for congestion, ear pain, nosebleeds, rhinorrhea, sinus pressure, sore throat and trouble swallowing. Eyes: Negative for pain and discharge. Respiratory: Negative for cough, chest tightness and shortness of breath. Cardiovascular: Negative for chest pain, palpitations and leg swelling. Gastrointestinal: Negative for abdominal pain, blood in stool, constipation, diarrhea and nausea. Endocrine: Negative for polydipsia and polyuria. Genitourinary: Negative for dysuria, frequency, genital sores, pelvic pain and vaginal discharge. Musculoskeletal: Negative for back pain and neck pain. Skin: Negative for rash. Allergic/Immunologic: Negative for environmental allergies. Neurological: Positive for light-headedness and headaches. Negative for dizziness, seizures and weakness. Hematological: Negative for adenopathy. Psychiatric/Behavioral: Negative for agitation, behavioral problems, self-injury and suicidal ideas. OBJECTIVE: Vitals: 11/25/24 1414 11/25/24 1450 BP: (!) 194/102 (!) 168/102 BP Location: Left arm Right arm Patient Position: Sitting BP Cuff Size: Adult Pulse: 53 Resp: 18 Temp: 97.4 ??F (36.3 ??C) TempSrc: Temporal SpO2: 100% Weight: 132 lb 12.8 oz (60.2 kg) Physical Exam HENT: Right Ear: Tympanic membrane and ear canal normal. Left Ear: Tympanic membrane and ear canal normal. Mouth/Throat: Mouth: Mucous membranes are moist. Pharynx: No oropharyngeal exudate or posterior oropharyngeal erythema. Eyes: Pupils: Pupils are equal, round, and reactive to light. Cardiovascular: Rate and Rhythm: Regular rhythm. Pulses: Normal pulses. Heart sounds: Normal heart sounds. No murmur heard. Pulmonary: Breath sounds: Normal breath sounds. Abdominal: General: Bowel sounds are normal. Palpations: Abdomen is soft. Tenderness: There is no abdominal tenderness. Musculoskeletal: General: Normal range of motion. Cervical back: Neck supple. Skin: General: Skin is warm. Neurological: General: No focal deficit present. Mental Status: She is alert and oriented to person, place, and time. Psychiatric: Mood and Affect: Mood normal. Behavior: Behavior normal. Encounter Date: 11/25/24 ECG 12 lead Narrative Sinus bradycardia at 42 bpm, normal axis, No ST / T abn. No ischemic changes or other arrhythmias Problem List Items Addressed This Visit Primary hypertension - Primary Uncontrolled, she is off medications. Start lisinopril 10 mg and follow-up BP with RN in 2 to 3 weeks and with your PCP in 1 to 2 months. Counseled re low salt diet/increase moderate physical activity. Check home BP BIW (she has BP machine at home) and prn CP/HERNÁNDEZ/BELCHER. She should go immediately to ED if she develops exertional chest pain, BELCHER, pleural effusion, severe headache that does not improve with medications or any neurological deficits Order labs She is an ex-smoker, advised to cut down THC smoking Relevant Orders ECG 12 lead Sinus bradycardia Avoid beta-blockers, will attempt to control hypertension and follow-up on symptoms. Advised to go to ED if she develops persistent palpitations, persistent lightheadedness, dyspnea orchest pain Order Holter monitor and refer to cardiology Relevant Orders Referral to Cardiology Holter monitor - 48 hour Other Visit Diagnoses Elevated blood pressure reading Relevant Orders Comprehensive Metabolic Panel TSH with Reflex to Free T4 CBC auto differential Follow Up: No current outpatient medications on file prior to visit. No current facility-administered medications on file prior to visit. documented in this encounter Miscellaneous Notes * Assessment & Plan Note - Carole Galeas MD - 11/25/2024 3:07 PM EDT Associated Problem(s): Sinus bradycardia Avoid beta-blockers, will attempt to control hypertension and follow-up on symptoms. Advised to go to ED if she develops persistent palpitations, persistent lightheadedness, dyspnea orchest pain Order Holter monitor and refer to cardiology * Assessment & Plan Note - Carole Galeas MD - 11/25/2024 3:05 PM EDT Associated Problem(s): Primary hypertension Uncontrolled, she is off medications. Start lisinopril 10 mg and follow-up BP with RN in 2 to 3 weeks and with your PCP in 1 to 2 months. Counseled re low salt diet/increase moderate physical activity. Check home BP BIW (she has BP machine at home) and prn CP/HERNÁNDEZ/BELCHER. She should go immediately to ED if she develops exertional chest pain, BELCHER, pleural effusion, severe headache that does not improve with medications or any neurological deficits Order labs She is an ex-smoker, advised to cut down THC smoking documented in this encounter Plan of Treatment Upcoming Encounters Date Type Department Care Team (Late st Contact Info) Description 12/09/2024 2:00 PM EDT Clinical Support [facility] [address] [place] [phone] 01/09/2025 9:15 AM EDT Office Visit [facility] [address] [place] [address] Carole Galeas MD [address] [place] [address] Scheduled Orders Name Type Priority Associated Diagnoses Orde r Schedule Holter monitor - 48 hour Cardiac Services Routine Sinus bradycardia Expected: 11/25/2024 (Approximate), Expires: 11/25/2026 Scheduled Referrals Name Type Priority Associated Diagnoses Orde r Schedule Referral to Cardiology Outpatient Referral Routine Sinus bradycardia Expected: 11/25/2024 (Approximate), Expires: 11/25/2025 documented as of this encounter Procedures Procedure Name Priority Date/Time Associated Diagnosis Comments ECG 12-LEAD Routine 11/25/2024 3:13 PM EDT Primary hypertension TSH W/REFLEX TO FT4 Routine 11/25/2024 3 :04 PM EDT Elevated blood pressure reading CBC WITH AUTO DIFFERENTIAL Routine 11/25/2024 3:04 PM EDT Elevated blood pressure reading COMPREHENSIVE METABOLIC PANEL Routine 11/25/2024 3:04 PM EDT Elevated blood pressure reading documented in this encounter Results * ECG 12 lead (11/25/2024 3:13 PM EDT) Carole Pelayo MD - 11/25/2024 3:13 PM EDT Sinus bradycardia at 42 bpm, normal axis, No ST / T abn. No ischemic changes or other arrhythmias us Carole Galeas MD ECG ORDERABLES Final Re sult * (ABNORMAL) CBC auto differential (11/25/2024 3:04 PM EDT) White Blood Count 5.9 4.8 - 10.8 X10*3/uL [facility] Red Blood Count 4.82 4.20 - 5.50 X10*6/uL [facility] Hemoglobin 14.0 12.0 - 16.0 g/dl [facility] Hematocrit 42.0 37.0 - 47.0 % [facility] Mean Corpuscular Volume 87.1 80.0 - 98.0 fL [facility] Mean Corpuscular Hemoglobin 29.0 27.0 - 33.0 pg [facility] Mean Corpuscular HGB Conc 33.3 31.0 - 35.0 g/dl [facility] Red Cell Distribution Width 12.9 11.0 - 16.0 % [facility] Platelet Count 238 160 - 400 X10*3/uL [facility] Mean Platelet Volume 11.2 9.4 - 12.3 fL [facility] Neutrophils Percent Auto 38.3(L) 45 - 73 % [facility] Imm Gran Pct Auto 0.3 0.0 - 0.4 % [facility] Lymphocytes Percent Auto 48.8(H) 20 - 40 % [facility] Monocytes Percent Auto 8.6 2 - 11 % [facility] Eosinophils Percent Auto 3.2 0 - 4 % [facility] Basophils Percent Auto 0.8 0 - 2 % [facility] NRBC Pct Auto 0.0 0.0 - 0.2 /100WBC [facility] Neutrophils Absolute Auto 2.3 2.0 - 8.3 x10*3/uL [facility] Imm Gran Abs Auto 0.02 0.00 - 0.03 X10*3/uL [facility] Lymphocytes Absolute Auto 2.9 1.2 - 4.9 X10*3/uL [facility] Monocytes Absolute Auto 0.5 0.1 - 1.2 X10*3/uL [facility] Eosinophils Absolute Auto 0.2 0.0 - 0.4 X10*3/uL [facility] Basophils Absolute Auto 0.1 0.0 - 0.2 X10*3/uL [facility] NRBC Abs Auto 0.000 0.0 - 0.012 X10*3/uL [facility] Blood Venous blood specimen / Unknown 11/25/2024 3:04 PM EDT 11/25/2024 4:05 PM EDT us Carole Galeas MD LAB BLOOD ORDERABLES Fin al Result [facility] [address] [place] [phone] * TSH with Reflex to Free T4 (11/25/2024 3:04 PM EDT) TSH reflex Free T4 0.67 0.32 - 4.0 uIU/mL [facility] Blood 11/25/2024 3:04 PM EDT 11/25/2024 4:05 PM EDT us Carole Galeas MD LAB BLOOD ORDERABLES Fin al Result [facility] [address] [place] [phone] [phone] * (ABNORMAL) Comprehensive Metabolic Panel (11/25/2024 3:04 PM EDT) Sodium 140 135 - 145 mmol/L [facility] Potassium 3.9 3.3 - 5.1 mmol/L [facility] Chloride 107 96 - 108 mmol/L [facility] Carbon Dioxide 28 22 - 29 mmol/L [facility] Anion Gap 9(L) 12 - 20 [facility] Urea Nitrogen (BUN) 9 9 - 16 mg/dL [facility] Creatinine, Serum 0.69 0.5 - 1.4 mg/dL [facility] Estimated Glomerular Filt Rate >60 [facility] Comment:Chronic Kidney Disea se: Estimated GFR < 60 mL/min/[id number] Kidney Disease: Estimated GFR < 15 mL/min/1.73m2 Glucose 102 60 - 115 mg/dL [facility] Calcium 9.4 8.4 - 10.2 mg/dL [facility] Bilirubin, Total 0.3 0.0 - 1.0 mg/dL [facility] Aspartate Amino Transferase 23 5 - 31 U/L [facility] Alanine Aminotransferase 17 0 - 31 U/L [facility] Total Protein 6.9 6.5 - 8.0 g/dL [facility] Albumin Level 4.1 3.5 - 5.0 g/dL [facility] Alkaline Phosphatase 80 39 - 117 U/L [facility] Blood Venous blood specimen / Unknown 11/25/2024 3:04 PM EDT 11/25/2024 4:05 PM EDT us Carole Galeas MD LAB BLOOD ORDERABLES Fin al Result [facility] [address] [place], [place] [phone] documented in this encounter Visit Diagnoses Diagnosis Primary hypertension- Primary Unspecified essential hypertension Sinus bradycardia Other specified cardiac dysrhythmias Elevated blood pressure reading Elevated blood pressure reading without diagnosis of hypertension documented in this encounter
--- OUTSIDE RECORDS SUMMARY | 2024-11-28 11:01 | XMS_ITS | Clinical Summary ---
Author Organization [facility] Address [address] [place] [address] Care Team Providers Care Slope Runner Name Role Phone Unknown Primary Care Provider [phone] Allergies Active Allergy Reactions Criticality Noted Date Comments Avocado Hives Medium 11/14/2022 Banana Hives Medium 11/14/2022 [place] Hives Medium 11/14/2022 Latex Hives Medium 11/14/2022 [...] age to complete this topic Care Teams Slope Runner Relationship Specialty Start Date End Date Unknown Unknow Provider Address PCP - General 12/06/22
--- OUTSIDE RECORDS SUMMARY | 2024-11-28 11:01 | XMS_ITS | Clinical Summary ---
Author Organization [employer] Address [address] [facility] 7t [place] [address] Care Team Providers Care Supplier Quality Name Role Phone Unavailable Primary Care Provider Unavailabl e Allergies Active Allergy Reactions Criticality Noted Date Comments Avocado Angioedema 11/25/2024 Banana Angioedema 11/25/2024 Citric Acid Angioedema 11/25/2024 Latex Rash Low 11/25/2024 Kechi Flavoring Agent (Non-Screening) Angioedema 11/25/2024 Medications lisinopril 10 MG tablet Take 1 tablet (10 mg) by mouth Once per day. 90 tablet 1 11/25/2024 Active Active Problems Problem Noted Date Diagnosed Date Primary hypertension 11/25/2024 Assessment & Plan (11/25/2024 3:05 PM EDT): Uncontrolled, she is off medications. Start lisinopril [...] ex-smoker, advised to cut down THC smoking Sinus bradycardia 11/25/2024 Assessment & Plan (11/25/2024 3:07 PM EDT): Avoid beta-blockers, will attempt to control hypertension and follow-up on symptoms. Advised to go to ED if she develops persistent palpitations, persistent lightheadedness, dyspnea or chest pain Order Holter monitor and refer to cardiology Encounters Date Type Department Care Team Description 11/25/2024 2:20 PM EDT Office Visit [facility] [address] [place] [phone] Carole Galeas MD Primary hypertension (Primary Dx); Sinus bradycardia; Elevated blood pressure reading 11/25/2024 Travel from Last 3 Months Family History Medical History Relation Name Comments Arrhythmia Mother htn Mother Relation Name Status Comments Father Mother Social History Tobacco Use Types Packs/Day Years [...] Orientation Straight 11/25/2024 2: 08 PM EDT Last Filed Vital Signs Vital [...] Mass Index - - Plan of Treatment Upcoming Encounters Date Type Department Care Team (Late st Contact Info) Description 12/09/2024 2:00 PM EDT Clinical Support [facility] [address] [place] [address] [phone] 01/09/2025 9:15 AM EDT Office Visit [facility] [address] [place] [phone] Carole Galeas MD [address] [place] [phone] Health Maintenance Due Date Last Done Comments CT Colonography 1977 Colonoscopy 1977 Colorectal Cancer Screening 1977 Depression Screening 1977 FIT DNA/Cologuard 1977 FIT 1977 FOBT 1977 HIV Screening 1977 Lipid Panel 1977 SDOH Screening 1977 Sigmoidoscopy 1977 Alcohol/Substance Use Screening 1989 Family Planning (PISQ) 1992 Hepatitis C Screening 1995 Hepatitis B Vaccines (1 of 3 - 19+ 3-dose series) 1996 Pap Smear 1998 Cervical Cancer Screening 2007 HPV/Cotest 2007 Mammogram 2017 COVID-19 Vaccine (1 - 2023-2 5 season) 2024 Influenza Vaccine (#1) 2024 Tobacco Screening 11/25/2025 11/25/2024 Zoster Vaccines (1 of 2) 2027 DTaP/Tdap/Td Vaccines (3 - T d or Tdap) 07/29/2034 07/29/2024, 02/10/2010 RSV Patients and Patients Aged 60 years or older (1 - 1-dose 75+ series) 2052 Pneumococcal Vaccine: Pediatrics (0 to 5 Years) and At-Risk Patients (6 to 49) Years) Aged Out 02/10/2010 No longer eligible b ased on patient's age to complete this topic HIB Vaccines Aged Out No longer eligi ble based on patient's age to complete this topic HPV Vaccines Aged Out No longer eligi ble based on patient's age to complete this topic Hepatitis A Vaccines Aged Out No long er eligible based on patient's age to complete this topic IPV Vaccines Aged Out No longer eligi ble based on patient's age to complete this topic Meningococcal Vaccine Aged Out No lorna atif eligible based on patient's age to complete this topic RSV under 20 months Aged Out No longe r eligible based on patient's age to complete this topic Rotavirus Vaccines Aged Out No longer eligible based on patient's age to complete this topic Procedures Procedure Name Priority Date/Time Associated Diagnosis Comments ECG 12-LEAD Routine 11/25/2024 3:13 PM EDT Primary hypertension CBC WITH AUTO DIFFERENTIAL Routine 11/25/2024 3:04 PM EDT Elevated blood pressure reading TSH W/REFLEX TO FT4 Routine 11/25/2024 3 :04 PM EDT Elevated blood pressure reading COMPREHENSIVE METABOLIC PANEL Routine 11/25/2024 3:04 PM EDT Elevated blood pressure reading from Last 3 Months Results * ECG 12 lead (11/25/2024 3:13 PM EDT) Narrative Carole Galeas MD - 11/25/2024 3:13 PM EDT Sinus bradycardia at 42 bpm, normal axis, No ST / T abn. No ischemic changes or other arrhythmias us Carole Galeas MD ECG ORDERABLES Final Re sult * TSH with Reflex to Free T4 (11/25/2024 3:04 PM EDT) TSH reflex Free T4 0.67 0.32 - 4.0 uIU/mL [facility] Blood 11/25/2024 3:04 PM EDT 11/25/2024 4:05 PM EDT us Carole Galeas MD LAB BLOOD ORDERABLES Fin al Result [facility] [address] [place] [phone] * (ABNORMAL) CBC auto differential (11/25/2024 3:04 PM EDT) White Blood Count 5.9 4.8 - 10.8 X10*3/uL [facility] Red Blood Count 4.82 4.20 - 5.50 X10*6/uL [facility] Hemoglobin 14.0 12.0 - 16.0 g/dl [facility] Hematocrit 42.0 37.0 - 47.0 % [facility] Mean Corpuscular Volume 87.1 80.0 - 98.0 fL [facility] Mean Corpuscular Hemoglobin 29.0 27.0 - 33.0 pg [facility] Mean Corpuscular HGB Conc 33.3 31.0 - 35.0 g/dl [facility] Red Cell Distribution Width 12.9 11.0 - 16.0 % [facility] Platelet Count 238 160 - 400 X10*3/uL [facility] Mean Platelet Volume 11.2 9.4 - 12.3 fL [facility] Neutrophils Percent Auto 38.3(L) 45 - 73 % [facility] Imm Gran Pct Auto 0.3 0.0 - 0.4 % [facility] Lymphocytes Percent Auto 48.8(H) 20 - 40 % [facility] Monocytes Percent Auto 8.6 2 - 11 % [facility] Eosinophils Percent Auto 3.2 0 - 4 % [facility] Basophils Percent Auto 0.8 0 - 2 % [facility] NRBC Pct Auto 0.0 0.0 - 0.2 /100WBC [facility] Neutrophils Absolute Auto 2.3 2.0 - 8.3 x10*3/uL [facility] Imm Gran Abs Auto 0.02 0.00 - 0.03 X10*3/uL [facility] Lymphocytes Absolute Auto 2.9 1.2 - 4.9 X10*3/uL [facility] Monocytes Absolute Auto 0.5 0.1 - 1.2 X10*3/uL [facility] Eosinophils Absolute Auto 0.2 0.0 - 0.4 X10*3/uL [facility] Basophils Absolute Auto 0.1 0.0 - 0.2 X10*3/uL [facility] NRBC Abs Auto 0.000 0.0 - 0.012 X10*3/uL [facility] Blood Venous blood specimen / Unknown 11/25/2024 3:04 PM EDT 11/25/2024 4:05 PM EDT us Carole Galeas MD LAB BLOOD ORDERABLES Fin al Result [facility] [address] [place] [phone] * (ABNORMAL) Comprehensive Metabolic Panel (11/25/2024 3:04 PM EDT) Sodium 140 135 - 145 mmol/L [facility] Potassium 3.9 3.3 - 5.1 mmol/L [facility] Chloride 107 96 - 108 mmol/L [facility] Carbon Dioxide 28 22 - 29 mmol/L [facility] Anion Gap 9(L) 12 - 20 [facility] Urea Nitrogen (BUN) 9 9 - 16 mg/dL [facility] Creatinine, Serum 0.69 0.5 - 1.4 mg/dL [facility] Estimated Glomerular Filt Rate >60 [facility] Comment:Chronic Kidney Disea se: Estimated GFR < 60 mL/min/1.58o6Zofwzk Kidney Disease: Estimated GFR < 15 mL/min/1.73m2 Glucose 102 60 - 115 mg/dL [facility] Calcium 9.4 8.4 - 10.2 mg/dL [facility] Bilirubin, Total 0.3 0.0 - 1.0 mg/dL [facility] Aspartate Amino Transferase 23 5 - 31 U/L [facility] Alanine Aminotransferase 17 0 - 31 U/L [facility] Total Protein 6.9 6.5 - 8.0 g/dL [facility] Albumin Level 4.1 3.5 - 5.0 g/dL [facility] Alkaline Phosphatase 80 39 - 117 U/L [facility] Blood Venous blood specimen / Unknown 11/25/2024 3:04 PM EDT 11/25/2024 4:05 PM EDT us Carole Galeas MD LAB BLOOD ORDERABLES Fin al Result [facility] [address] [place] [phone] from Last 3 Months Insurance [place] [id number] [facility] C3
== END ==
LOC: HO.CARD 09:50
PROVIDERS: PCP Internal Medicine; Visit Provider Internal Medicine
DX: R00.1 Bradycardia, unspecified (principal)
CPT/HCPCS: 93225

== ENCOUNTER 2024-12-24 12:10 | Outpatient (REF) | payer MEDICAID, SELFPAY ==
--- NOTE | ~2024-12-24 | XR_ITS ---
EXAMINATION: XR CHEST CLINICAL INFORMATION: Patient with recurrent cough after recent PNA 2 months ago. COMPARISON: November 14, 2024. TECHNIQUE: 2 views of the chest were obtained. FINDINGS: No consolidation, pleural effusion or pneumothorax. Cardiomediastinal silhouette is normal. S-shaped curvature of the thoracic spine. Vascular clips, right upper quadrant abdomen. Bilateral apical lung scarring. XR/XR chest 2V IMPRESSION: No acute airspace disease. Status post cholecystectomy.. Electronically signed by: Cole Rivas MD 12/24/2024 12:50 PM EDT
--- OUTSIDE RECORDS SUMMARY | 2024-12-24 13:36 | XMS_ITS | Clinical Summary ---
Author Organization [facility] Address [address] [place] [address] Care Team Providers Care Roving Machine Operator Name Role Phone Unknown Primary Care Provider +000000 -0000 Allergies Active Allergy Reactions Criticality Noted Date Comments Avocado Hives Medium 11/14/2022 Banana Hives Medium 11/14/2022 Simpson Hives Medium 11/14/2022 Latex Hives Medium 11/14/2022 Belcher Hives Medium 11/14/2022 Medications amoxicillin (AMOXIL) 500 MG capsule Take 1 capsule (500 mg total) by mouth 2 (two) times a day. 20 capsule 12/06/2022 Active Social History Tobacco Use Types Packs/Day Years Used Date Smoking Tobacco: Former Cigarettes Smokeless Tobacco: Never Tobacco Cessation:Counseling Given: Not Answered Comments Unknown Sex and Gender Information Value Date Recorded Sex Assigned at Female 12/06/2022 12:53 PM EDT Legal Sex Female 6:35 PM EST Gender Identity Female 12/06/2022 12:53 PM EDT [...] on patient's age to complete this topic Insurance [facility] Care Teams Roving Machine Operator Relationship Specialty Start Date End Date Unknown Unknow Provider Address PCP - General 12/06/22
--- OUTSIDE RECORDS SUMMARY | 2024-12-24 13:37 | XMS_ITS | Encounter Summary ---
Author Organization [employer] Address [address] [facility] 7[address] [place] [address] Care Team Providers Care Brood Station Manager Name Role Phone Unavailable Primary Care Provider Unavailabl e Encounter Details Date Type Department Care Team (Late st Contact Info) Description 12/22/2024 Population Health Risk Score [facility] (C3) Department [address] [facility] [address] [place] [phone] Provider, Population Health Generic Social History Tobacco Use Types Packs/Day Years [...] Care Team (Late st Contact Info) Description 01/09/2025 9:15 AM EDT Office Visit [facility] [address] [place] [address] Carole Galeas MD [address] [place] [address] documented as of this encounter Visit Diagnoses Not on filedocumented in this encounter
--- OUTSIDE RECORDS SUMMARY | 2024-12-24 13:37 | XMS_ITS | Clinical Summary ---
Author Organization [employer] Address [address] [facility] 7[address] [place] [address] Care Team Providers Care Clerical Order Filler Name Role Phone Unavailable Primary Care Provider Unavailabl e Allergies Active Allergy Reactions Criticality Noted Date Comments Avocado Angioedema 11/25/2024 Banana Angioedema 11/25/2024 Citric Acid Angioedema 11/25/2024 Latex Rash Low 11/25/2024 Dani Flavoring Agent (Non-Screening) Angioedema 11/25/2024 Medications lisinopril 10 MG tablet Take 1 tablet (10 mg) by mouth Once per day. 90 tablet 1 11/25/2024 11/26/19 26 Active fluticasone (Flonase) 50 MCG/ACT nasal sprayIndications :Allergic rhinitis due to other allergic trigger, unspecified seasonality Use 1-2 sprays each nostril daily. Shake gently. Before first use, prime pump. After use, clean tip and replace cap. 16 g 2 12/23/2024 Active Active Problems Problem Noted Date Diagnosed [...] Encounters Date Type Department Care Team Description 12/23/2024 5:40 PM EDT Office Visit [facility] [address] [place] [address] Joni Aquino MD Allergic rhinitis due to other allergic trigger, unspecified seasonality (Primary Dx); Cough, unspecified type 12/22/2024 Population Health Risk Score [facility] () Department [address] [place] [phone] Provider, Population Health Generic 12/09/2024 2:00 PM EDT Clinical Support [facility] [address] [place] [address] Jolanta Fontaine RN Primary hypertension [I10] 12/09/2024 Travel 11/25/2024 2:20 PM EDT Office Visit [facility] [address] [place] [address] Carole Galeas MD Primary hypertension (Primary Dx); [...] = 0.6 oz pur e alcohol) Comments No Sex and Gender Information Value Date Recorded Sex Assigned at Female 11/25/2024 2:08 PM EDT Legal Sex Female 3:51 PM EST Gender Identity Female 11/25/2024 2:08 PM EDT Sexual Orientation Straight 11/25/2024 2: 08 PM EDT Last Filed Vital Signs Vital Sign Reading Time Taken Comments Blood Pressure 120/85 12/23/2024 5:24 PM EDT Pulse 69 12/23/2024 5:24 PM EDT Temperature 37.1 ??C (98.7 ??F) 12/23/2024 5:24 PM ED T Respiratory Rate 21 12/23/2024 5:24 PM EDT Oxygen Saturation 99% 12/23/2024 5:24 PM EDT Inhaled Oxygen Concentration - - Weight 61 kg (134 lb 8 oz) 12/23/2024 5:24 PM ED T Height 167.6 cm (5' 6 ) 12/23/2024 5:24 PM EDT Body Mass Index 21.71 12/23/2024 5:24 PM EDT Plan of Treatment Upcoming Encounters Date Type Department Care Team (Late st Contact Info) Description 01/09/2025 9:15 AM EDT Office Visit [facility] [address] [place], [place] [phone] Carole Galeas MD [address] [place], [place] [phone] Health Maintenance Due Date Last Done Comments CT Colonography 1977 Colonoscopy 1977 Colorectal Cancer Screening 1977 Depression Screening 1977 FIT DNA/Cologuard 1977 FIT 1977 FOBT 1977 HIV Screening 1977 Lipid Panel 1977 SDOH Screening 1977 Sigmoidoscopy 1977 Alcohol/Substance Use Screening 1989 Family Planning (PISQ) 1992 Hepatitis C Screening 1995 Hepatitis B Vaccines (1 of 3 - 19+ 3-dose series) 1996 Mammogram 2017 COVID-19 Vaccine ( - 2023-2 5 season) 2024 Influenza Vaccine (#1) 2024 Tobacco Screening 12/23/2025 12/23/2024 Zoster Vaccines (1 of 2) 2027 DTaP/Tdap/Td [...] Procedure Name Priority Date/Time Associated Diagnosis Comments XR CHEST 2 VIEWS Routine 12/24/2024 12:1 1 PM EDT Cough, unspecified type POCT INFLUENZA B (ID NOW RAPID MOLECULAR) Routine 12/23/2024 5:45 PM EDT Cough, unspecified type POCT INFLUENZA A (ID NOW RAPID MOLECULAR) Routine 12/23/2024 5:45 PM EDT Cough, unspecified type POCT RAPID COVID ANTIGEN Routine 12/23/2024 5:40 PM EDT Cough, unspecified type ECG 12-LEAD Routine 11/25/2024 3:13 PM EDT Primary hypertension CBC WITH AUTO DIFFERENTIAL Routine 11/25/2024 3:04 PM EDT Elevated blood pressure reading TSH W/REFLEX TO FT4 Routine 11/25/2024 3 :04 PM EDT Elevated blood pressure reading COMPREHENSIVE METABOLIC PANEL Routine 11/25/2024 3:04 PM EDT Elevated blood pressure reading from Last 3 Months Results * XR Chest 2 Views (12/24/2024 12:11 PM EDT) Anatomical Region Laterality Modality Chest Radiographic Ping ging 12/24/2024 12:1 1 PM EDT Narrative 12/24/2024 12:53 PM EDT ?[facility] ?[address] ?[place] [address] ?XRay Report ? Signed ? Patient: Hang,Carolyn ?MR#: [id number] ?? 05 ? : 1975 ?Acct:[id number] ? Age/Sex: 49 / F ?ADM Date: 12/24/24 ? Loc: HO.HHCX ? Attending Dr: Joni Aquino MD ? Ordering Physician: Joni Aquino MD ?? Date of Service: 12/24/24 ?? Procedure(s): XR chest 2V ?? Accession Number(s): [id number] ? cc: Joni Aquino MD ? EXAMINATION: ?? XR CHEST ? CLINICAL INFORMATION: ?? Patient with recurrent cough after recent PNA 2 months ago. ? COMPARISON: ?? November 14, 2024. ? TECHNIQUE: ?? 2 views of the chest were obtained. ? FINDINGS: ?? No consolidation, pleural effusion or pneumothorax. ?? Cardiomediastinal silhouette is normal. ?? S-shaped curvature of the thoracic spine. ?? Vascular clips, right upper quadrant abdomen. ?? Bilateral apical lung scarring. ? XR/XR chest 2V ?? IMPRESSION: ?? No acute airspace disease. ?? Status post cholecystectomy.. ? Electronically signed by: ??Cole Rivas MD ??12/24/2024 12:50 PM ?? EDT RP ? Dictated By: ?Cole Conroy MD ? Signed By: ?<Electronically signed by Cole Hanna MD in OV> ? 12/24/24 1250 ? DD/ 1211 ? TD/TT: 12/24/24 1230 ? Device Sales Consultant: ? Procedure Note Sina Finn - 12/24/[address] [address] XRay Report Signed Patient: Carolyn MauricioMR#: [id number] 05 : 1975Acct:[id number] Age/Sex: 49 / FADM Date: 12/24/24 Loc: HO.HHCX Attending Dr: Joni Aquino MD Ordering Physician: Joni Aquino MD Date of Service: 12/24/24 Procedure(s): XR chest 2V Accession Number(s): [id number] cc: Joni Aquino MD EXAMINATION: XR CHEST CLINICAL INFORMATION: Patient with recurrent cough after recent PNA 2 months ago. COMPARISON: November 14, 2024. TECHNIQUE: 2 views of the chest were obtained. FINDINGS: No consolidation, pleural effusion or pneumothorax. Cardiomediastinal silhouette is normal. S-shaped curvature of the thoracic spine. Vascular clips, right upper quadrant abdomen. Bilateral apical lung scarring. XR/XR chest 2V IMPRESSION: No acute airspace disease. Status post cholecystectomy.. Electronically signed by: Cole Rivas MD 12/24/2024 12:50 PM EDT RP Dictated By: Cole Conroy MD Signed By: <Electronically signed by Cole Hanna MDin OV> 12/24/24 1250 DD/ 1211 TD/TT: 12/24/24 1230 Device Sales Consultant: Joni Aquino MD IMG XR PROCEDURES Edited Result - Final * POCT Rapid Influenza B RUDOLPH ID NOW (12/23/2024 5:45 PM EDT) Influenza B Negative Negative, Indeterminate [facility] QC Media Lot # [id number] [facility] Lot# Expiration Date [facility] Swab 12/23/2024 5:45 PM EDT Joni Aquino MD POINT OF CARE TEST ENTER/EDIT OR DERABLES Final Result [facility] [address] [place] [phone] * POCT Rapid Influenza A RUDOLPH ID NOW (12/23/2024 5:45 PM EDT) Influenza A Negative Negative, Indeterminate [facility] QC Media Lot # [id number] [facility] Lot# Expiration Date [facility] Swab 12/23/2024 5:45 PM EDT Joni Aquino MD POINT OF CARE TEST ENTER/EDIT OR DERABLES Final Result Performing Organization Address [facility] Co de Phone Number [facility] [address] [place] [address] [phone] * POCT Rapid Covid-19 BinaxNOW (12/23/2024 5:40 PM EDT) [facility] Rapid COVID Ag Negative QC Media Lot # [id number] Lot# Expiration Date Swab 12/23/2024 5:40 PM EDT Joni Aquino MD POINT OF CARE TEST ENTER/EDIT OR DERABLES Final Result * ECG 12 lead (11/25/2024 3:13 PM EDT) Narrative Carole Galeas MD - 11/25/2024 3:13 PM EDT Sinus bradycardia at 42 bpm, normal axis, No ST / T abn. No ischemic changes or other arrhythmias Carole Galeas MD ECG ORDERABLES Final Re sult * TSH with Reflex to Free T4 (11/25/2024 3:04 PM EDT) [facility] TSH reflex Free T4 0.67 0.32 - 4.0 uIU/mL [facility] Blood 11/25/2024 3:04 PM EDT 11/25/2024 4:05 PM EDT Carole Galeas MD LAB BLOOD ORDERABLES Fin al Result Performing Organization Address City/[facility]/ZIP Co de Phone Number [facility] [address] [place] [address] [phone] * (ABNORMAL) CBC auto differential (11/25/2024 3:04 PM EDT) White Blood Count 5.9 4.8 - 10.8 X10*3/uL [facility] Red Blood Count 4.82 4.20 - 5.50 X10*6/uL [facility] Hemoglobin 14.0 12.0 - 16.0 g/dl [facility] Hematocrit 42.0 37.0 - 47.0 % [facility] Mean Corpuscular Volume 87.1 80.0 - 98.0 fL [facility] Mean Corpuscular Hemoglobin 29.0 27.0 - 33.0 pg [facility] Mean Corpuscular HGB Conc 33.3 31.0 - 35.0 g/dl [facility] Red Cell Distribution Width 12.9 11.0 - 16.0 % [facility] Platelet Count 238 160 - 400 X10*3/uL [facility] Mean Platelet Volume 11.2 9.4 - 12.3 fL [facility] Neutrophils Percent Auto 38.3(L) 45 - 73 % [facility] Imm Gran Pct Auto 0.3 0.0 - 0.4 % [facility] Lymphocytes Percent Auto 48.8(H) 20 - 40 % [facility] Monocytes Percent Auto 8.6 2 - 11 % [facility] Eosinophils Percent Auto 3.2 0 - 4 % [facility] Basophils Percent Auto 0.8 0 - 2 % [facility] NRBC Pct Auto 0.0 0.0 - 0.2 /100WBC [facility] Neutrophils Absolute Auto 2.3 2.0 - 8.3 x10*3/uL [facility] Imm Gran Abs Auto 0.02 0.00 - 0.03 X10*3/uL [facility] Lymphocytes Absolute Auto 2.9 1.2 - 4.9 X10*3/uL [facility] Monocytes Absolute Auto 0.5 0.1 - 1.2 X10*3/uL [facility] Eosinophils Absolute Auto 0.2 0.0 - 0.4 X10*3/uL [facility] Basophils Absolute Auto 0.1 0.0 - 0.2 X10*3/uL [facility] NRBC Abs Auto 0.000 0.0 - 0.012 X10*3/uL [facility] Blood Venous blood specimen / Unknown 11/25/2024 3:04 PM EDT 11/25/2024 4:05 PM EDT us Carole Galeas MD LAB BLOOD ORDERABLES Fin al Result [facility] [address] [place], [place] [phone] * (ABNORMAL) Comprehensive Metabolic Panel (11/25/2024 3:04 PM EDT) Sodium 140 135 - 145 mmol/L [facility] Potassium 3.9 3.3 - 5.1 mmol/L [facility] Chloride 107 96 - 108 mmol/L [facility] Carbon Dioxide 28 22 - 29 mmol/L [facility] Anion Gap 9(L) 12 - 20 [facility] Urea Nitrogen (BUN) 9 9 - 16 mg/dL [facility] Creatinine, Serum 0.69 0.5 - 1.4 mg/dL [facility] Estimated Glomerular Filt Rate >60 [facility] Comment:Chronic Kidney Disea se: Estimated GFR < 60 mL/min/1.75h8Rucewn Kidney Disease: Estimated GFR < 15 mL/min/1.73m2 Glucose 102 60 - 115 mg/dL [facility] Calcium 9.4 8.4 - 10.2 mg/dL [facility] Bilirubin, Total 0.3 0.0 - 1.0 mg/dL [facility] Aspartate Amino Transferase 23 5 - 31 U/L [facility] Alanine Aminotransferase 17 0 - 31 U/L [facility] Total Protein 6.9 6.5 - 8.0 g/dL [facility] Albumin Level 4.1 3.5 - 5.0 g/dL [facility] Alkaline Phosphatase 80 39 - 117 U/L [facility] Blood Venous blood specimen / Unknown 11/25/2024 3:04 PM EDT 11/25/2024 4:05 PM EDT Carole Galeas MD LAB BLOOD ORDERABLES Fin al Result [facility] [address] [place] [address] [phone] from Last 3 Months Insurance [facility] C3
--- OUTSIDE RECORDS SUMMARY | 2024-12-24 13:37 | XMS_ITS | Continuity of Care Document ---
Author Organization Formerly [facility] vices Address [address] [place] [address] Phone Care Team Providers Care Metal Furniture Panel Coverer Name Role Phone Generic Provider, [facility] Unavailable Unavailabl e Allergies, Adverse Reactions, Alerts Substance Reaction Status Criticality matthew Active No Information avocado Active No Information banana Active No Information [place] And Derivatives Active No In formation latex Active No Information Medications Medication Instructions Dosage Effective Dates (start - stop) Status Comments Vazalore 81 mg capsule take 1 capsule by oral route every day 81 MG - Active arginine (L-arginine) 500 mg tablet [id number] mg twice a day PO - Active [...] Diagnoses Date Provider Providers Copied on Encounter [facility], [address] [place], [address], [place] tel:[phone] [facility] Adult Medicine No Information [address] [facility]. . [facility], [address] [place], [address], [place] tel:[phone] [facility] Dental No Information 3 Andres Grimes. [address] [facility], [id number] [place], [place], [id number], [place]. tel:[phone] OFFICE/OUTPT Visit - Established - Low MDM, 20 - 29 Minutes [facility], [address] [place] [address], [address], [place] tel:[phone] 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 [address] [facility], [id number] [place], [address], [place]. tel:[phone] OFFICE/OUTPT Visit, NEW - Mod MDM, 45 - 59 Minutes [facility], [address] [place] [address], [address], [place] tel:[phone] [facility] Adult Medicine ESTABLISH CARE (chief complaint) Body [...] alliance party ID Miller doss(s) D Medicaid [id number] Social History Type Description Quantity Date Captured [...] and counseling completed Referral Ordered: Referrals: Location: [facility] Dental ordered Referral Ordered: Referrals: Location: [facility] Behavioral Health ordered History Of Present Illness Encounter Date Complaint History Of Prese nt Illness executive vice president Pt presenting to Adult Medicine complaining of Chest Pain design inserter: A/O x 3, 47-year-old, female with c/o [...] conditions. She recently moved back here from [place] but is taking 10 mg of amlodipine [...]
--- OUTSIDE RECORDS SUMMARY | 2024-12-24 13:37 | XMS_ITS | Encounter Summary ---
Author Organization [employer] Address [address] [facility] 7[address] [place] [address] Care Team Providers Care Electrical Estimator Name Role Phone Unavailable Primary Care Provider Unavailabl e Encounter Details Date Type Department Care Team (Late st Contact Info) Description 12/23/2024 5:40 PM EDT Office Visit [facility] [address] [place] [address] Joni Aquino MD [address] [place] [address] Allergic rhinitis due to other allergic trigger, unspecified seasonality (Primary Dx); Cough, unspecified type Social History Tobacco Use Types Packs/Day Years [...] Mass Index 21.71 12/23/2024 5:24 PM EDT documented in this encounter Progress Notes * Joni Aquino MD - 12/23/2024 5:40 PM EDT Subjective History was provided by the patient. Carolyn Mauricio is a 49 y.o. female who presents for evaluation of recurrent cough. Was seen at [facility] 2 months ago and was diagnosed with CAP (no records available). Took Z-rochelle and Prednisone. Was feeling better until 4-5 days ago. Now with cough, itchy throat, and body ache. Took Zyrtec but no improvement. Denies any significant congestion or rhinorrhea. Denies F/C/N/V/D. S/p ADRIENNE. No CP/SOB/BELCHER. Objective Vitals: 12/23/24 1724 BP: 120/85 BP Location: Right arm Patient Position: Sitting BP Cuff Size: Adult Pulse: 69 Resp: 21 Temp: 98.7 ??F (37.1 ??C) TempSrc: Oral SpO2: 99% Weight: 134 lb 8 oz (61 kg) Height: 5' 6 (1.676 m) Physical Exam Vitals reviewed. Constitutional: Appearance: Normal appearance. She is normal weight. HENT: Head: Normocephalic and atraumatic. Right Ear: Tympanic membrane, ear canal and external ear normal. Left Ear: Tympanic membrane, ear canal and external ear normal. Nose: Congestion present. No rhinorrhea. Mouth/Throat: Mouth: Mucous membranes are dry. Pharynx: Oropharynx is clear. Posterior oropharyngeal erythema present. No oropharyngeal exudate. Eyes: Extraocular Movements: Extraocular movements intact. Conjunctiva/sclera: Conjunctivae normal. Pupils: Pupils are equal, round, and reactive to light. Cardiovascular: Rate and Rhythm: Normal rate and regular rhythm. Heart sounds: Normal heart sounds. Pulmonary: Effort: Pulmonary effort is normal. Breath sounds: Normal breath sounds. Musculoskeletal: General: Normal range of motion. Cervical back: Normal range of motion and neck supple. Skin: General: Skin is warm and dry. Neurological: General: No focal deficit present. Mental Status: She is alert and oriented to person, place, and time. Mental status is at baseline. Psychiatric: Mood and Affect: Mood normal. Behavior: Behavior normal. Thought Content: Thought content normal. Judgment: Judgment normal. Diagnoses and all orders for this visit: Allergic rhinitis due to other allergic trigger, unspecified seasonality (Primary) - fluticasone (Flonase) 50 MCG/ACT nasal spray; Use 1-2 sprays each nostril daily. Shake gently. Before first use, prime pump. After use, clean tip and replace cap. Cough, unspecified type - POCT Rapid Covid-19 BinaxNOW - POCT Rapid Influenza A RUDOLPH ID NOW - POCT Rapid Influenza B RUDOLPH ID NOW - XR Chest 2 Views; Future Patient presents to [facility] due to recurrent cough and allergy symptoms Recent diagnosis of PNA, treated with Azithromycin and Prednisone 2 months ago Doing much better until the onset of current symptoms 4-5 days ago Now with clinical presentation of allergic rhinitis Normal pulmonary exam and no respiratory distress O2 sat reassuring Discussed strategies to minimize allergen exposure (frequent vacuuming, avoid keeping open for a prolonged time, and use of air purifier) OTC supportive medications reviewed Rx Flonase nasal spray Also recommended nasal saline irrigation Potential adverse effects of the medications reviewed Given recent PNA, will check CXR Advised to contact the clinic if no improvement of symptoms Indications for UC/ER use reviewed documented in this encounter Plan of Treatment Upcoming Encounters Date Type Department Care Team (Late st Contact Info) Description 01/09/2025 9:15 AM EDT Office Visit [facility] [address] [place] [address] Carole Galeas MD [address] [place] [address] documented as of this encounter Procedures Procedure [...] 12/23/2024 5:40 PM EDT Cough, unspecified type documented in this encounter Results * XR Chest 2 Views (12/24/2024 12:11 PM EDT) Anatomical Region Laterality Modality Chest Radiographic Ping ging 12/24/2024 12:1 1 PM EDT Narrative 12/24/2024 12:53 PM EDT ?[facility] ?[address] ?[place] [address] ?XRay Report ? Signed ? Patient: HangCarolyn ?MR#: [id number] ?? 05 ? : 1975 ?Acct:[id number] ? Age/Sex: 49 / F ?ADM Date: 12/24/24 ? Loc: HO.HHCX ? Attending Dr: Joni Aquino MD ? Ordering Physician: Joni Aquino MD ?? Date of Service: 12/24/24 ?? Procedure(s): XR chest 2V ?? Accession Number(s): [id number] ? cc: Joni Aquino MD ? EXAMINATION: [...] by Cole Hanna MD in OV> ? 12/24/ 1250 ? DD/DT: 12/24/ 1211 ? TD/TT: 12/24/ 1230 ? Entry Analyst: ? Procedure Note Donotuseinterpreter, Image - 12/24/2024 [facility] [address] [place] [address] XRay Report Signed Patient: Carolyn MauricioMR#: [id number] 05 : 1975Acct:[id number] Age/Sex: 49 / FADM Date: 12/24/24 Loc: .HHCX Attending Dr: Joni Aquino MD Ordering Physician: Joni Aquino MD Date of Service: 12/24/24 Procedure(s): XR chest 2V Accession Number(s): [id number] cc: Joni Aquino MD EXAMINATION: XR CHEST [...] Cole Rivas MD 12/24/2024 12:50 PM EDT Dictated By: Cole Conroy MD Signed By: <Electronically signed by Cole Hanna MDin OV> 12/24/24 1250 DD/ 1211 TD/TT: 12/24/24 1230 Entry Analyst: Joni Aquino MD IMG XR PROCEDURES Edited Result - Final * POCT Rapid Influenza B RUDOLPH ID NOW (12/23/2024 5:45 PM EDT) Influenza B Negative Negative, Indeterminate [facility] QC Media Lot # [id number] [facility] Lot# Expiration Date , [facility] Swab 12/23/2024 5:45 PM EDT us Joni Aquino MD POINT OF CARE TEST ENTER/EDIT OR DERABLES Final Result [facility] [address] [place] [address] [phone] * POCT Rapid Influenza A RUDOLPH ID NOW (12/23/2024 5:45 PM EDT) Influenza A Negative Negative, Indeterminate [facility] QC Media Lot # [id number] [facility] Lot# Expiration Date [facility] Swab 12/23/2024 5:45 PM EDT us Joni Aquino MD POINT OF CARE TEST ENTER/EDIT OR DERABLES Final Result Performing Organization Address [facility]/ZIP Co de Phone Number [facility] [address] [place] [phone] * POCT Rapid Covid-19 BinaxNOW (12/23/2024 5:40 PM EDT) Rapid COVID Ag Negative QC Media Lot # [id number] Lot# Expiration Date Swab 12/23/2024 5:40 PM EDT us Joni Aquino MD POINT OF CARE TEST ENTER/EDIT OR DERABLES Final Result documented in this encounter Visit Diagnoses Diagnosis Allergic rhinitis due to other allergic trigger, unspecified seasonality- Primary Cough, unspecified type documented in this encounter
== END 2024-12-24 12:11 | disposition home or self-care (01) ==
LOC: HO.HHCX 12:10
PROVIDERS: Visit Provider Family Medicine
DX: R05.9 Cough, unspecified (principal)
CPT/HCPCS: 71046

== ENCOUNTER → 2024-12-24 12:11 | Outpatient (BNV) | payer MEDICAID, SELFPAY | PROVIDERS: Visit Provider Radiology Diagnostic Radiology | DX: R05.3 Chronic cough (principal) | CPT/HCPCS: 71046 ==

== ENCOUNTER 2025-03-16 10:29 | Outpatient (REF) | payer MEDICAID, SELFPAY ==
--- OUTSIDE RECORDS SUMMARY | 2023-10-10 05:58 | XMS_ITS | Continuity of Care Document ---
Author Organization [facility] vices Address [address] [place] [address] Phone Care Team Providers Care Community Health Consultant Name Role Phone Generic Provider, [facility] Unavailable Unavailabl e Allergies, Adverse Reactions, Alerts Substance Reaction Status Criticality matthew Active No Information avocado Active No Information banana Active No Information [place] And Derivatives Active No In formation latex Active No Information Medications Medication Instructions Dosage Effective Dates (start - stop) Status Comments Vazalore 81 mg capsule take 1 capsule by oral route every day 81 MG - Active arginine (L-arginine) 500 mg tablet [id number] mg twice a day PO - Active [...] Diagnoses Date Provider Providers Copied on Encounter [facility], [address] [place], [address], [place] tel:[phone] [facility] Adult Medicine No Information 4 Generic Provider [facility]. . [facility], [address] [place], [address], [place] tel:[phone] [facility] Dental No Information 3 Andres Grimes. [address] [facility], [id number] [place], [place], [id number], [place]. tel:[phone] OFFICE/OUTPT Visit - Established - Low MDM, 20 - 29 Minutes 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 [address] [facility], [id number] [place], [address], [place]. tel:[phone] OFFICE/OUTPT Visit, NEW - Mod MDM, 45 - 59 Minutes [facility], [address] [place] [address], [address], [place] tel:[phone] [facility] Adult Medicine ESTABLISH CARE (chief complaint) Body [...] relative Payers Payer name Insurance type Covered republican ID Miller doss(s) D Medicaid [id number] Social History Type Description Quantity Date Captured [...] completed Referral Ordered: Referrals: Location: [facility] Behavioral Health ordered Referral Ordered: Referrals: Location: [facility] Dental ordered History Of Present Illness Encounter Date Complaint History Of Prese nt 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 She also endorses a history of high blood pressure but denies any other known diagnosed conditions. She recently moved back here from [place] but is taking 10 mg of amlodipine [...] notes reviewed. Agree but more detail above. chest pain ESTABLISH CARE 47 y/o female pr esents [...] if worsening. Related to Acute abdominal pain Dietary management e ducation, guidance, and counseling Related to Body mass index [BMI] 25.0-25.9, adult Weight monitoring Related to Bod y mass index [BMI] 25.0-25.9, adult Assessments Type Assessment Date No Information Patient Care Teams Name Effective Dates (start - stop) Status Members No Information
--- OUTSIDE RECORDS SUMMARY | 2025-03-16 11:29 | XMS_ITS | Clinical Summary ---
Author Organization [facility] Address [address] [place] [address] Care Team Providers Care Food And Beverage Server Name Role Phone Unknown Primary Care Provider [phone] Allergies Active Allergy Reactions Criticality Noted Date Comments Avocado Hives Medium 11/14/2022 Banana Hives Medium 11/14/2022 [place] Hives Medium 11/14/2022 Latex Hives Medium 11/14/2022 Dani Hives Medium 11/14/2022 Medications amoxicillin (AMOXIL) 500 [...] 76 12/06/2022 4:56 PM EDT Temperature 36.3 C (97.4 F) 12/06/2022 4:56 PM EDT Respiratory Rate 18 12/06/2022 4:56 PM EDT [...] (Ages 21-65) 1998 Mammogram 2017 Colonoscopy 2022 COVID-19 Vaccine (1 - 2023-2 5 season) 2024 Influenza Vaccine 03/27/2025 Pneumococcal Vaccine: Pediat rubén (0-5 Years) and At-Risk Patients (6 to 49 Years) Aged Out No longer eligible b ased on patient's age to complete this topic Insurance [facility] Care Teams Food And Beverage Server Relationship Specialty Start Date End Date Unknown Unknow Provider Address PCP - General 12/06/22
--- OUTSIDE RECORDS SUMMARY | 2025-03-16 11:29 | XMS_ITS | Clinical Summary ---
Author Organization [employer] Address [address] [facility] [address] [place] [address] Care Team Providers Care Temple Marker Name Role Phone Carole Galeas MD Primary Care Provider + Allergies Active Allergy Reactions Criticality Noted Date Comments Avocado Angioedema 11/25/2024 Banana Angioedema 11/25/2024 Citric Acid Angioedema 11/25/2024 [place] Hives Medium 11/14/2022 Latex Rash Low 11/25/2024 Mangifera Indica Hives Medium 11/14/2022 Dani Flavoring Agent (Non-Screening) Angioedema 11/25/2024 Medications lisinopril 10 MG tablet Take 1 tablet (10 mg) by mouth Once per day. 90 tablet 1 5 11/26/19 26 Active fluticasone (Flonase) 50 MCG/ACT nasal sprayIndications :Allergic rhinitis due to other allergic trigger, unspecified seasonality Use 1-2 sprays each nostril daily. Shake gently. Before first use, prime pump. After use, clean tip and replace cap. 16 g 2 5 Active Ketotifen Fumarate 0.035 % solutionIndicati ons:Allergic rhinitis due to other allergic trigger, unspecified seasonality Administer 1 drop into affected eye(s) if needed in the morning and at bedtime (allergies). 10 mL 3 5 Active fexofenadine (Pilar) 180 MG tabletIndication s:Allergic rhinitis due to other allergic trigger, unspecified seasonality Take 1 tablet (180 mg) by mouth Once per day. 90 tablet 5 01/14/20 26 Active sodium chloride ([place]) 0.65 % nasal sprayIndications :Allergic rhinitis due to other allergic trigger, unspecified seasonality Administer 1 spray into each nostril if needed for congestion. 15 mL 11 5 01/14/20 26 Active Active Problems Problem Noted Date Diagnosed Date Screening mammogram for breast cancer 01/22/2025 Assessment & Plan (01/22/2025 5:29 PM EDT): Will order mammogram Cough 01/13/2025 Assessment & Plan (01/13/2025 6:12 PM EDT): Ongoing cough >2 weeks with some posttussive emesis. No sputum. Will treat empirically for possible pneumonia versus pertussis. -prescribed azithromycin (Zithromax) 250 MG -ER precautions discussed. -Seek medical attention for worsening symptoms. Allergic rhinitis 01/13/2025 Assessment & Plan (01/13/2025 6:12 PM EDT): Reports worsening congestion, sinus pressure, sneezing and teary eyes. -prescribed odium chloride ([place]) 0.65 % nasal spray -prescribed Ketotifen Fumarate 0.035 % solution -prescribed fluticasone (Flonase) 50 MCG/ACT nasal spray -prescribed fexofenadine (Pilar) 180 MG -ER precautions discussed. -Seek medical attention for worsening symptoms. Primary hypertension 11/25/2024 Assessment & Plan (01/22/2025 5:30 PM EDT): Better control on lisinopril 10 mg, continue same medications Advised to increase physical activity, low salt intake and continue checking BP at home once or twice per week. Reconsult as needed or go to ED if she develops chest pain, headache, BELCHER or leg edema. Advised to cut down on THC smoking Follow-up with me in 3 months Referred to eye clinic to rule out hypertensive retinopathy Assessment & Plan (11/25/2024 3:05 PM EDT): [...] smoking Sinus bradycardia 11/25/2024 Assessment & Plan (01/22/2025 5:27 PM EDT): Holter monitor pending Advised to go to ED if she develops palpitation, lightheadedness, BELCHER or CP. Assessment & Plan (11/25/2024 3:07 PM EDT): Avoid beta-blockers, will attempt to control hypertension and follow-up on symptoms. Advised to go to ED if she develops persistent palpitations, persistent lightheadedness, dyspnea or chest pain Order Holter monitor and refer to cardiology Encounters Date Type Department Care Team Description 02/03/[address] [address] Carole Galeas MD Appointment Request 01/13/2025 6:20 PM EDT Office Visit [facility] [address] [address] Clarice Amaro MD Cough, unspecified type (Primary Dx); Allergic rhinitis due to other allergic trigger, unspecified seasonality 01/09/2025 9:15 AM EDT Office Visit [address] [address] Carole Galeas MD Sinus bradycardia (Primary Dx); Screening mammogram for breast cancer; Primary hypertension 01/09/2025 Travel 01/08/[address] [address] Carole Galeas MD chart prep 01/02/2025 Patient Outreach [address] [address] Carole Galeas MD Pre-visit Planning (SDOH screening negative and tobacco screening negative) 12/23/2024 5:40 PM EDT Office Visit [facility] [address] [address] Joni Aquino MD Allergic rhinitis due to other allergic trigger, unspecified seasonality (Primary Dx); Cough, unspecified type 12/22/2024 Population Health Risk Score [facility] () [address] [address] Provider, Population Health Generic from Last 3 Months Immunizations Immunization Administration Dates Next Due Pneumococcal Polysaccharide PPSV23 02/10/2010 Tdap 07/29/2024,02/10/2010 Family History Medical History Relation Name Comments Arrhythmia Mother htn Mother Relation Name Status Comments Father Mother Social History Tobacco Use Types Packs/Day Years Used Date Smoking Tobacco: Former Cigarettes Smokeless Tobacco: Never Tobacco Cessation:Counseling Given: Not Answered Alcohol Use Standard Drinks/Week Comments Not Currently 0 (1 standard drink = 0.6 oz pur e alcohol) Depression Answer Date Recorded Patient Health Questionnaire-9 Score 11 01/09/2025 Patient Health Questionnaire-9 Score 11 01/09/2025 Last PHQ-9: Questionnaire Data Not on file 0 01/09/2025 Housing Stability Answer Date Recorded What is your housing situation today? I have behzad sharma 01/02/[address] you li ve. Do you have problems with any of the following? None of the above 01/02/2025 Food Insecurity Answer Date Recorded Within the past 12 months, y ou worried that your food would run out before you got money to buy more: Sometimes True 2024 Within the past 12 months,th e food you bought just didn't last and you didn't have enough money to get more: Sometimes True 01/02/2025 Transportation Answer Date Recorded In the past 12 months, has l ack of transportation kept you from medical appts, meetings, work or from getting things needed for daily living? No 01/02/2025 Utilities Answer Date Recorded In the past 12 months, has t he electric, gas, oil or water company threatened to shut off services in your home? No 01/02/2025 Depression Answer Date Recorded Patient Health Questionnaire-2 Score 2 01/09/2025 Internet Access Answer Date Recorded Internet Access Q1 Yes 01/02/2025 Internet Access Q2 Not on file 01/02/2025 Comments No Sex and Gender Information Value Date Recorded Sex Assigned at Female 11/25/2024 2:08 PM EDT Legal Sex Female 3:51 PM EST Gender Identity Female 11/25/2024 2:08 PM EDT Sexual Orientation Straight 11/25/2024 2: 08 PM EDT Last Filed Vital Signs Vital Sign Reading Time Taken Comments Blood Pressure 110/70 01/13/2025 5:45 PM EDT Pulse 64 01/13/2025 5:45 PM EDT Temperature 36.8 C (98.2 F) 01/13/2025 5:45 PM EDT Respiratory Rate 16 01/13/2025 5:45 PM EDT Oxygen Saturation 98% 01/09/2025 9:04 AM EDT Inhaled Oxygen Concentration - - Weight 60 kg (132 lb 3.2 oz) 01/13/2025 5:45 PM EDT Height 167.6 cm (5' 6 ) 01/09/2025 9:04 AM EDT Body Mass Index 21.34 01/09/2025 9:04 AM EDT Plan of Treatment Upcoming Encounters Date Type Department Care Team (Late st Contact Info) Description 04/15/2025 9:15 AM EDT Office Visit [facility] [address] [place] [address] Carole Galeas MD [address] [place] [address] 05/05/2025 10:30 AM EDT Office Visit [facility] [address] [place] [address] Jazlyn Day, OD [address] [place] [address] Health Maintenance Due Date Last Done Comments CT Colonography 1977 Colonoscopy 1977 Colorectal Cancer Screening 1977 FIT DNA/Cologuard 1977 FIT 1977 FOBT 1977 HIV Screening 1977 Lipid Panel 1977 Sigmoidoscopy 1977 Disability Screening 1977 Family Planning (PISQ) 1992 Hepatitis C Screening 1995 Hepatitis B Vaccines (1 of 3 - 19+ 3-dose series) 1996 Mammogram 2017 COVID-19 Vaccine (1 - 2023-2 5 season) 2024 Influenza Vaccine (#1) 2025 Depression Monitoring 07/12/2025 01/09/2025 , 01/09/2025 SDOH Screening 01/02/2026 01/02/2025 Alcohol/Substance Use Screening 01/09/2026 01/09/2025 Tobacco Screening 01/09/2026 01/09/2025 Zoster Vaccines (1 of 2) 2027 DTaP/Tdap/Td Vaccines (3 - T d or Tdap) 07/29/2034 07/29/2024, 02/10/2010 RSV Patients and Patients Aged 60 years or older (1 - 1-dose 75+ series) 2052 Pneumococcal Vaccine: Pediatrics (0 to 5 Years) and At-Risk Patients (6 to 49) Years Aged Out 02/10/2010 No longer eligible b [...] patient's age to complete this topic Meningococcal B Vaccine Aged Out No l onger eligible based on patient's age to complete [...] Procedure Name Priority Date/Time Associated Diagnosis Comments HOLTER MONITOR - 48 HOUR Routine 01/12/2025 Sinus bradycardia XR CHEST 2 VIEWS Routine 12/24/2024 12:1 1 PM EDT Cough, unspecified type POCT INFLUENZA B (ID NOW RAPID MOLECULAR) Routine 12/23/2024 5:45 PM EDT Cough, unspecified type POCT INFLUENZA A (ID NOW RAPID MOLECULAR) Routine 12/23/2024 5:45 PM EDT Cough, unspecified type POCT RAPID COVID ANTIGEN Routine 12/23/2024 5:40 PM EDT Cough, unspecified type from Last 3 Months Results * Holter monitor - 48 hour (01/12/2025) Carole Galeas MD [facility] PROC EDURES Final Result * XR Chest 2 Views (12/24/2024 12:11 PM EDT) Anatomical Region Laterality Modality Chest Radiographic Ping ging 12/24/2024 12:1 1 PM EDT Narrative 12/24/2024 12:53 PM EDT [address] [address] XRay Report Signed Patient: Carolyn Mauricio MR#: [id number] [birth year] : 1975 Acct:[id number] Age/Sex: 49 / F ADM Date: 12/24/24 Loc: .HHCX Attending Dr: Joni Aquino MD Ordering Physician: Joni Aquino MD Date of Service: 12/24/24 Procedure(s): XR chest 2V Accession Number(s): [id number] cc: Joni Aquino MD EXAMINATION: XR CHEST [...] Signed By: <Electronically signed by Cole Hanna MD in OV> 12/24/24 1250 DD/ 1211 TD/TT: 12/24/24 1230 Leather Products Supervisor: Procedure Note Donotuseinterpreter, Image - 12/24/2024 [facility] [address] [place] [address] XRay Report Signed Patient: Carolyn MauricioMR#: [id number] 05 : 1975Acct:[id number] Age/Sex: 49 / FADM Date: 12/24/24 [facility]: Joni Aquino MD Ordering Physician: Joni Aquino MD Date of Service: 12/24/24 Procedure(s): XR chest 2V Accession Number(s): [id number] cc: Joni Aquino MD EXAMINATION: XR CHEST [...] 12/24/24 1250 DD/ 1211 TD/TT: 12/24/24 1230 Leather Products Supervisor: Joni Aquino MD IMG XR PROCEDURES Edited Result - Final * POCT Rapid Influenza B RUDOLPH ID NOW (12/23/2024 5:45 PM EDT) Influenza B Negative Negative, Indeterminate [facility] QC Media Lot # [id number] [facility] Lot# Expiration Date [facility] Swab 12/23/2024 5:45 PM EDT Joni Aquino MD POINT OF CARE TEST ENTER/EDIT OR DERABLES Final Result Performing Organization Address [facility]/ZIP Co de Phone Number [facility] [address] [place] [address] [phone] * POCT Rapid Influenza A RUDOLPH ID NOW (12/23/2024 5:45 PM EDT) Influenza A Negative Negative, Indeterminate [facility] QC Media Lot # [id number] [facility] Lot# Expiration Date [facility] Swab 12/23/2024 5:45 PM EDT Joni Aquino MD POINT OF CARE TEST ENTER/EDIT OR DERABLES Final Result Performing Organization Address [facility] Co de Phone Number [facility] [address] [place] [address] [phone] * POCT Rapid Covid-19 BinaxNOW (12/23/2024 5:40 PM EDT) Rapid COVID Ag Negative QC Media Lot # [id number] Lot# Expiration Date Swab 12/23/2024 5:40 PM EDT Joni Aquino MD POINT OF CARE TEST ENTER/EDIT OR DERABLES Final Result from Last 3 [place] [address] [facility] C3 Care Teams Temple Marker Relationship Specialty Start Date End Date Carole Galeas MD [address] [place] [address] PCP - General Internal Medicine 01/09/25
--- OUTSIDE RECORDS SUMMARY | 2025-03-16 11:30 | XMS_ITS ---
Author Name [facility] Organization Unknown Encounters Encounter Type Encounter Reason Primary Diagnosis Location Date Emergency Acute pharyngiti s, unspecified [id number] 12/06/2022 Care Team Organization Name Specialty Phone Email Start Date End [place] [facility]) 2023 [facility] 05/19/2023 024 [place] [facility] 12/06/2022 12/06/2022 [place] [facility] 12/06/2022 [facility] 07/16/2022
== END 2025-03-16 10:30 | disposition home or self-care (01) ==
LOC: HO.MAMMO 10:29
PROVIDERS: PCP Internal Medicine; Visit Provider Internal Medicine
DX: Z12.31 Encounter for screening mammogram for malignant neoplasm of breast (principal)
CPT/HCPCS: 77063; 77067

== ENCOUNTER → 2025-03-16 10:45 | Outpatient (BNV) | payer MEDICAID, SELFPAY | PROVIDERS: PCP Internal Medicine; Visit Provider Radiology Body Imaging | DX: Z12.31 Encounter for screening mammogram for malignant neoplasm of breast (principal) | CPT/HCPCS: 77063; 77067 ==

== ENCOUNTER 2025-04-09 12:29 | Outpatient (AMB) | payer MEDICAID, SELFPAY ==
--- OUTSIDE RECORDS SUMMARY | 2023-10-10 05:58 | XMS_ITS | Continuity of Care Document ---
Author Organization [facility] vices Address [address] [place] [address] Phone Care Team Providers Care Assistant Facility Manager Name Role Phone Generic Provider, [facility] Unavailable Unavailabl e Allergies, Adverse Reactions, Alerts Substance Reaction Status Criticality matthew Active No Information avocado Active No Information banana Active No Information [place] And Derivatives Active No In formation latex Active No Information Medications Medication Instructions Dosage Effective Dates (start - stop) Status Comments Vazalore 81 mg capsule take 1 capsule by oral route every day 81 MG - Active arginine (L-arginine) 500 mg tablet [id number] mg twice a day PO - Active [...] Diagnoses Date Provider Providers Copied on Encounter [facility], [address] [place], [address], [place] tel:[phone] [facility] Adult Medicine No Information 4 Generic Provider [facility]. . [facility], [address] [place], [address], [place] tel:[phone] [facility] Dental No Information 3 Andres Grimes. [address] [facility], [id number] [place], [place], [id number], [place]. tel:[phone] OFFICE/OUTPT Visit - Established - Low MDM, 20 - 29 Minutes 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 [address] [facility], [id number] [place], [address], [place]. tel:[phone] OFFICE/OUTPT Visit, NEW - Mod MDM, 45 - 59 Minutes [facility], [address] [place] [address], [address], [place] tel:[phone] [facility] Adult Medicine ESTABLISH CARE (chief complaint) Body [...] relative Payers Payer name Insurance type Covered green party ID Miller doss(s) D Medicaid [id number] Social History Type Description Quantity Date Captured [...] and counseling completed Referral Ordered: Referrals: Location: [facility] Dental ordered Referral Ordered: Referrals: Location: [facility] Behavioral Health ordered History Of Present Illness Encounter Date Complaint History Of Prese nt Illness abdominal pain nausea and vomiting 47-year-old female with past medical history of having a total abdominal hysterectomy when she was 29 years old and occasionally vapes but does not smoke cigarettes anymore. She also endorses a history of high blood pressure but denies any other known diagnosed conditions. She recently moved back here from [place] but is taking 10 mg of amlodipine [...] Agree but more detail above. 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
[2025-04-09 12:50] VITALS: BP 122/80; PULSE 59; BMI 20.3
--- NOTE | 2025-04-09 12:50 | MHC.OFFVIS ---
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 She had also noticed to have slow heart rate. Patient says while she was in usual see he was treated for hypertension and also has a at that time was noted to have bradycardia. At that time initially considered for pacemaker but subsequently seen by Cardiology and thought that she is not a pacemaker candidate. She is very functional and currently still highly active. She has no active symptoms. Recently again she has moved to [place] and has establish with insurance, which she had lost in between and she is not on any medications. She was noted to have elevated blood pressure. She has been started on lisinopril therapy which has been gradually uptitrate. Blood pressure has been gradually better controlled at this point time. However she has developed a dry cough. She denies any cardiac symptoms. She says she is very active and denies any exertional chest pain or shortness of breath. No prolonged palpitation or irregular heartbeat or lightheadedness. No orthopnea, PND, leg edema. She denies any symptoms suggestive of sleep apnea. [facility] Social History Substance Use Type: Marijuana Review of Systems Const Denies chills, Denies daytime sleepiness, Denies fatigue, Denies fever(s), Denies frequent falls, Denies poor appetite, Denies snoring, Denies stops breathing during sleep, Denies weakness, Denies weight gain and Denies weight loss Eyes Denies loss of vision ENT Denies dizziness and Denies hearing loss Card Denies chest pain, Denies claudication, Denies leg edema, Denies lightheadedness, Denies palpitations, Denies dyspnea, Denies dyspnea on exertion and Denies orthopnea Resp Denies cough, Denies excessive phlegm production, Denies dyspnea, Denies dyspnea on exertion, Denies snoring and Denies wheezing GI Denies abdominal pain, Denies hematochezia, Denies change in bowel habits, Denies nausea and Denies vomiting Denies urinary frequency and Denies dysuria Musc Denies arthralgias, Denies muscle weakness and Denies numbness Skin/Breast Denies nail changes and Denies rash Neuro Denies Abnormal speech present, Denies dizziness, Denies frequent falls, Denies loss of vision, Denies memory loss, Denies numbness and Denies weakness Psych Denies depression and Denies memory loss Endo Denies fatigue and Denies palpitations Talha/Lymph Reports easy bruising and Reports other (anemia) Aller/Immun Denies wheezing Physical Exam Vital Signs: Last Vital Signs Pulse 59 04/09/25 12:50 BP 122/80 04/09/25 12:50 BMI result Body Mass Index 20.3 Const General: cooperative, comfortable, no acute distress, alert, awake and Physically active Nutritional Appearance: thin Orientation/consciousness: patient oriented x3 Limitations: no limitations HEENT Head: Yes normocephalic and Yes atraumatic Neck Neck: Yes trachea midline, Yes supple and Yes no JVD Resp Effort & Inspection: normal respiratory effort Auscultation: clear to auscultation bilaterally Cardio Jugular venous distension: no JVD Palpation: normal PMI Rate: regular rate Rhythm: regular rhythm Heart sounds: S1 normal heart sound present, S2 normal heart sound present, no click, no gallops, no murmurs and no rubs GI Auscultation: normal bowel sounds Skin General skin exam: no rashes or lesions noted Neuro General: patient oriented x3 and no focal motor deficits Speech: No Abnormal speech present Extrem General: Yes no clubbing, cyanosis or edema Office Procedures EKG Details: EKG shows sinus bradycardia with rightward axis otherwise normal EKG 57018-[id number], Complete Assessment & Plan Assessment & Plan (1) HTN (hypertension): Code(s): I10 - Essential (primary) hypertension Category: Medical Plan: Patient with hypertension will many years but had lost coverage and was not following through. Now recently noted to have elevated blood pressure again and has no symptoms related to it. Patient has been started on lisinopril therapy and since then blood pressure is currently well controlled. However she has developed some side effects related to lisinopril which is very common. I will switch her to Diovan/valsartan 160 mg daily. This should lead to resolution for symptoms. Advised to continue to monitor blood pressure at home maintain a log. Advised to monitor blood pressure at various times of the day. Advise low-salt diet and other lifestyle modification including avoiding stimulants such as caffeine and alcohol index. Also discussed about stress mitigation strategies and participate in behavioral therapy such as meditation etc.. She understands agrees. She is encouraged to continue to participate in physical activity as tolerated. Follow-up echocardiogram in near future (2) Sinus bradycardia: Code(s): R00.1 - Bradycardia, unspecified Plan: Sinus bradycardia which is physiologic. She is currently having no symptoms related to it. No interventions required per se. No pacemaker therapy required. Discussed with her about avoiding rate lowering blood pressure medications in the future. She understands. Will follow up in the clinic if need be. Thank you for allowing me to partake in her care Orders: Orders CA echo transthoracic complete Today I10 - Essential (primary) hypertension Medications: New valsartan 160 mg PO DAILY 30 tabs 5RF I10 - Essential (primary) hypertension Discontinued azithromycin Discontinued Reason: Patient no longer taking For 250 mg dose pack: take 500 mg today (day 1), then 250 mg for 4 days (days 2-5) 6 tabs 0RF benzonatate Discontinued Reason: Patient Completed Course 100 mg PO BID PRN 20 caps 0RF cough nitrofurantoin monohyd/m-cryst 100 mg must administer with a meal/food Discontinued Reason: Patient Completed Course 100 mg PO BID 7 days 14 caps 0RF oseltamivir (Tamiflu) Discontinued Reason: Patient Completed Course 75 mg PO BID 5 days 10 caps 0RF guaifenesin Discontinued Reason: Patient Completed Course 200 mg PO TID PRN 10 tabs 0RF cough prednisone Discontinued Reason: Patient Completed Course 40 mg (2 x 20 mg) PO DAILY 5 days 10 tabs 0RF Coding Level of Care Code New Pt Level 4 (66831) Complex EM visit Add On G2211 Diagnoses HTN (hypertension) I10 Sinus bradycardia R00.1 CPT Codes EKG - CPT: 23617-[id number], Complete ([id number])
--- OUTSIDE RECORDS SUMMARY | 2025-04-09 13:18 | XMS_ITS | Clinical Summary ---
Author Organization [facility] Address [address] [place] [address] Care Team Providers Care Quality Improvement Coordinator (Rn) Name Role Phone Unknown Primary Care Provider [phone] Allergies Active Allergy Reactions Criticality Noted Date Comments Avocado Hives Medium 11/14/2022 Banana Hives Medium 11/14/2022 Enigma Hives Medium 11/14/2022 Latex Hives Medium 11/14/2022 [...] patient's age to complete this topic Insurance [facility] Care Teams Quality Improvement Coordinator (Rn) Relationship Specialty Start Date End Date Unknown Unknow Provider Address PCP - General 12/06/22
--- OUTSIDE RECORDS SUMMARY | 2025-04-09 13:18 | XMS_ITS | Clinical Summary ---
Author Organization [employer] Address [address] [facility] [address] [place] [address] Care Team Providers Care Sales Advisor Name Role Phone Carole Galeas MD Primary Care Provider + Allergies Active Allergy Reactions Criticality Noted Date Comments Avocado Angioedema 11/25/2024 Banana Angioedema 11/25/2024 Citric Acid Angioedema 11/25/2024 [place] Hives Medium 11/14/2022 Latex Rash Low 11/25/2024 Mangifera Indica Hives Medium 11/14/2022 Dani Flavoring Agent (Non-Screening) Angioedema 11/25/2024 Medications lisinopril 10 MG tablet Take 1 tablet (10 mg) by mouth Once per day. 90 tablet 1 11/26/19 25 026 Active Ketotifen Fumarate 0.035 % solutionIndicat ions:Allergic rhinitis due to other allergic trigger, unspecified seasonality Administer 1 drop into affected eye(s) if needed in the morning and at bedtime (allergies). 10 mL 3 01/14/20 25 Active fexofenadine (Pilar) 180 MG tabletIndicatio ns:Allergic rhinitis due to other allergic trigger, unspecified seasonality Take 1 tablet (180 mg) by mouth Once per day. 90 tablet 01/14/20 25 026 Active sodium chloride ([place]) 0.65 % nasal sprayIndication s:Allergic rhinitis due to other allergic trigger, unspecified seasonality Administer 1 spray into each nostril if needed for congestion. 15 mL 11 01/14/20 25 026 Active fluticasone (Flonase) 50 MCG/ACT nasal sprayIndication s:Allergic rhinitis due to other allergic trigger, unspecified seasonality Use 1-2 sprays each nostril daily. Shake gently. Before first use, prime pump. After use, clean tip and replace cap. 48 mL 03/23/20 25 Active fluticasone (Flonase) 50 MCG/ACT nasal sprayIndication s:Allergic rhinitis due to other allergic trigger, unspecified seasonality Use 1-2 sprays each nostril daily. Shake gently. Before first use, prime pump. After use, clean tip and replace cap. 16 g 2 01/14/20 25 025 Discontinued Active Problems Problem Noted Date Diagnosed Date [...] sneezing and teary eyes. -prescribed odium chloride ([place]) 0.65 % nasal spray -prescribed Ketotifen Fumarate [...] Encounters Date Type Department Care Team Description 03/22/2025 Refill [facility] [address] [place] [phone] Joni Aquino MD Allergic rhinitis due to other allergic trigger, unspecified seasonality 02/03/2025 Telephone [facility] [address] [place] [phone] Carole Galeas MD Appointment Request 01/13/2025 6:20 PM EDT Office Visit [facility] [address] [address] Clarice Amaro MD Cough, unspecified type (Primary Dx); Allergic rhinitis due to other allergic trigger, unspecified seasonality 01/09/2025 9:15 AM EDT Office Visit [facility] [address] [place] [phone] Carole Galesa MD Sinus bradycardia (Primary Dx); Screening mammogram for breast cancer; Primary hypertension 01/09/2025 Travel 01/08/2025 Telephone [facility] [address] [place], [place] [phone] Carole Galeas MD chart prep from Last 3 Months Immunizations Immunization Administration [...] Team (Late st Contact Info) Description 04/15/2025 3:00 PM EDT Office Visit [facility] [address] [place] [address] Carole Galeas MD [address] [place] [address] 05/05/2025 10:30 AM EDT Office Visit [facility] [address] [place] [address] Jazlyn Day, OD [address] [place] [address] Health Maintenance Due Date Last Done Comments CT Colonography 1975 Colonoscopy 1975 Colorectal Cancer Screening 1975 FIT DNA/Cologuard 1975 FIT 1975 FOBT 1975 HIV Screening 1975 Lipid Panel 1975 Sigmoidoscopy 1975 Disability Screening 1977 Family Planning (PISQ) 1992 Hepatitis C Screening 1995 Hepatitis B Vaccines (1 of 3 - 19+ 3-dose series) 1996 Mammogram 2017 COVID-19 Vaccine (2023-2 5 season) 2024 Influenza Vaccine (#1) 2025 [...] - 48 HOUR Routine 01/12/2025 Sinus bradycardia from Last 3 Months Results * Holter monitor - 48 hour (01/12/2025) us Carole Galeas MD [facility] Final Result from Last 3 Months Insurance t ANAID Huber [id number] [facility] C3 Care Teams Sales Advisor Relationship Specialty Start Date End Date Carole Galeas MD [address] [place] [phone] PCP - General Internal Medicine 01/09/25
== END 2025-04-09 13:15 | disposition home or self-care (01) ==
LOC: HO.HCS 12:30
PROVIDERS: Visit Provider Internal Medicine Cardiovascular Disease
DX: I10 Essential (primary) hypertension (principal); R00.1 Bradycardia, unspecified
CPT/HCPCS: 93010; 99204

== ENCOUNTER → 2025-04-09 12:29 | Outpatient (BNVA) | payer MEDICAID, SELFPAY | PROVIDERS: Visit Provider Internal Medicine Cardiovascular Disease | DX: I10 Essential (primary) hypertension (principal); R00.1 Bradycardia, unspecified | CPT/HCPCS: 93005; 99202 ==

== ENCOUNTER → 2025-05-08 08:35 | Outpatient (REF) | payer MEDICAID, SELFPAY ==
--- OUTSIDE RECORDS SUMMARY | 2023-10-10 05:58 | XMS_ITS | Continuity of Care Document ---
Author Organization [facility] vices Address [address] [place] [address] Phone Care Team Providers Care Physician Office Assistant Name Role Phone Generic Provider, [facility] Unavailable Unavailabl e Allergies, Adverse Reactions, Alerts Substance Reaction Status Criticality matthew Active No Information avocado Active No Information banana Active No Information [place] And Derivatives Active No In formation latex Active No Information Medications Medication Instructions Dosage Effective Dates (start - stop) Status Comments Vazalore 81 mg capsule take 1 capsule by oral route every day 81 MG - Active arginine (L-arginine) 500 mg tablet [id number] mg twice a day PO - Active Procedures Procedure Date Prophylaxis-Adult Oral Hygiene Instructions Intraoral-Periapical First Film 023 Intraoral-Periapical Each Additional Addy m Bitewings-Four Films Treatment Plan Not Started OFFICE/OUTPT Visit - Established - Low M DM, 20 - 29 Minutes OFFICE/OUTPT Visit, NEW - Mod MDM, 45 - 59 Minutes Advance Directives Directive Yes / No Effective Date File Name No Information Encounters Encounter Description Practice Location Reason(s) For Visit Diagnoses Date Provider Providers Copied on Encounter [facility], [address] [place], [address], [place] tel:[phone] [facility] Adult Medicine No Information 4 Generic Provider [facility]. . [facility], [address] [place], [address], [place] tel:[phone] [facility] Dental No Information 3 Andres Grimes. [address] [facility], [id number] [place], [place], [id number], [place]. 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 [address] [facility], [id number] [place], [address], [place]. tel:[phone] OFFICE/OUTPT Visit, NEW - Mod MDM, 45 - 59 Minutes [facility], [address] [place] [address], [address], [place] tel:[phone] [facility] Adult Medicine ESTABLISH CARE (chief complaint) Body mass index (BMI) 25.0-25.9, adultBenign essential HTNScreening for colon cancer 3 No Information Family History Family Member Type Diagnosis Age At Onset Maternal aunt Problem malignant neopla sm of ovary (Cause Of ) Mother Problem Cardiovascular disease Maternal grandmother Problem malignant n eoplasm of ovary (Cause Of ) Problem Family history of Mental ill ness Maternal aunt Problem malignant neopla sm of breast in first degree relative (Cause Of ) Problem Family history of Cardiovasc ular disease Maternal aunt Problem malignant neopla sm of breast in first degree relative Payers Payer name Insurance type Covered constitution party ID Miller doss(s) D Medicaid [id number] Social History Type Description Quantity Date Captured Comments Alcohol Use Details Unknown Caffeine Use Details Unknown Tobacco Use Status No Information Smoking Status No Information Sex Female Sexual Orientation Choose not to disclose Gender Identity Female Chief Complaint And Reason For Visit No Information Reason For Referral Reason For Referral No Information Plan Of Treatment Date Type Action Status Goal Dietary management education , guidance, and counseling completed Referral Ordered: Referrals: Location: [facility] Behavioral Health ordered Referral Ordered: Referrals: Location: [facility] Dental ordered History Of Present Illness Encounter Date Complaint History Of Prese nt Illness chest pain nausea and vomiting 47-year-old female with past medical history of having a total abdominal hysterectomy when she was 29 years old and occasionally vapes but does not smoke cigarettes anymore. She also endorses a history of high blood pressure but denies any other known diagnosed conditions. She recently moved back here from [place] but is taking 10 mg of amlodipine and has a follow-up with her PCP next month. She is here today stating 4 days ago she experienced some brief midepigastric abdominal discomfort that lasted for about 10 minutes - radiated around to her right flank initially. Towards the end of this episode she felt rather lightheaded and dizzy and became nauseated, throwing up twice. After vomiting her symptoms resolved and she actually felt much better. In total this lasted about 15 minutes and symptoms have not returned. Over the past 3 days she has had what she describes as a tingling sensation in her left anterior shoulder area - tingling sensation occurred 3 times over the past few days and lasted about 3 seconds then self resolves. Denies any chest pain, heart pain or palpitations. No radiation of symptoms down the arm or up the neck or into the jaw area. Not currently experiencing any tingling at this time. In general she is feeling better at this time however her main symptom today is just general feelings of fatigue with her legs feeling somewhat heavy and just generally feeling very tired. No recent travel. No personal past cardiac history or pulmonary history. Family history of cardiac conditions include her mother with hypertension among some other unknown cardiac problems and a history of strokes and MIs in her grandparents on both sides in their 60s and 80s. She is vaccinated but not fully boosted for COVID. Denies fever, chills, current abdominal pain, nausea, vomiting, shortness of breath, chest pain, difficulty breathing or any HEENT symptoms.Nursing notes reviewed. Agree but more detail above. 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 Patient also reports intermittent symptoms of the following; nausea, radiating chest pain to the back, left sided tingling to upper chest and left shoulder, light-headedness, blurred vision, heavy legs and reports feeling pressure behind the eyes. Patient reports symptoms began 4 days ago and she vomited twice. Patient reports poor hydration, normal appetite, denies diarrhea. She denies chest tightness. Patient indicates she did not seek medical attention during any of these episodes. Patient reports she went to work Sunday night and again today, however, she left work today because of the symptoms. Skin warm, dry and intact. No tremors, No weaknessNo edema notedPt has steady gait with strong muscle tone bilaterally. VS: BP 147/85, HR 59, O2 99% RA, temp 98.6, RR 16. VS entered by ANAID. EKG obtained and given to provider.Assessment reviewed with provider and will be triageKelly Low RN, BSN ESTABLISH CARE 47 y/o female pr esents to the clinic to establish care. Screening: -Optometry: 2021-Dentist: referral -Pap: hysterectomy-Mammo: 2021 [place]-Colonoscopy: FIT given-Vaccines: Flu vaccine declined today.Current Medications: Patient taking medications as noted under the med list. No herbal supplements.PHQ9 and Learning assessment completed. Functional Status Date Functional Assessmen t No Information Instructions Date Instruction Additional Infor petr No red flags on exam . For now recommended rest and hydration. Her EKG was reassuring however we did discuss the diagnostic limitations here in a clinical setting for patients with some of the symptoms she was describing from several days ago. I did recommend that if she has any return of symptoms, chest pain, abdominal pain, lightheadedness, dizziness, nausea, vomiting or just generally feeling worse that she should go to the emergency room for further evaluation. She stated understanding. Related to Acute viral syndrome Do not hesitate to g o to the emergency room if you develop or any return or worsening abdominal discomfort, chest pain, heart pain or palpitations, shortness of breath or difficulty breathing.I would like you to follow-up with your primary care provider in 7-10 days, sooner if worsening. Related to Acute abdominal pain Weight monitoring Related to Bod y mass index [BMI] 25.0-25.9, adult Dietary management e ducation, guidance, and counseling Related to Body mass index [BMI] 25.0-25.9, adult Assessments Type Assessment Date No Information Patient Care Teams Name Effective Dates (start - stop) Status Members No Information
--- OUTSIDE RECORDS SUMMARY | 2025-05-05 10:30 | XMS_ITS | Encounter Summary ---
Author Organization [employer] Address [address] [facility] [address] [place] [address] Care Team Providers Care Rn Unit Manager Name Role Phone Carole Galeas MD Primary Care Provider + Encounter Details Date Type Department Care Team (Late st Contact Info) Description 05/05/2025 10:30 AM EDT Office Visit [facility] [address] [place] [address] Jazlyn Day, OD [address] [place] [address] Hypermetropia, bilateral (Primary Dx); Dry eyes, bilateral Social History Tobacco Use Types Packs/Day Years [...] PM EDT documented as of this encounter Progress Notes * Jazlyn Day, OD - 05/05/2025 10:30 AM EDT Eye Care Progress Note Patient ID: Carolyn Mauricio is a 49 y.o. female. HPI Patient reports intermittent blur both eyes (OU) at distance and near with current glasses. She says this does not happen all the time but she occasionally notices shadows/halos. Patient has tried PALs but were unable to adjust to them. [place]: 2 years ago Last edited by Jazlyn Day, OD on 05/05/2025 11:02 AM. Current Medications[1] Medical History[2] Surgical History[3] Family History[4] Tobacco Use: Medium Risk (05/05/2025) Tobacco Smoking Tobacco Use: Former Smokeless Tobacco Use: Never Passive Exposure: Not on file Allergies[5] ROS Positive for: Eyes Negative for: Constitutional, Gastrointestinal, Neurological, Skin, Genitourinary, Musculoskeletal,HENT, Endocrine, Cardiovascular, Respiratory, Psychiatric, Allergic/Imm, Heme/Lymph Last edited by Jazlyn Day, OD on 05/05/2025 10:11 AM. Base Eye Exam Visual Acuity (Snellen - Linear) Right Left Both Dist cc 20/20 20/20 Near cc 20/30 Wearing pair Tonometry (iCare , 10:23 AM) Right Left Pressure 16 16 Pupils Pupils APD Right PERRL None Left PERRL None Visual Valenzuela (Counting fingers) Left Right Full Full Extraocular Movement Right Left Full Full Neuro/Psych Oriented x3: Yes Mood/Affect: Normal Dilation Both eyes: 1.0% tropicamide @ 11:02 AM Slit Lamp and Fundus Exam External Exam Right Left External Normal Normal Slit Lamp Exam Right Left Lids/Lashes MGD UL/LL, tr bleph UL MGD UL/LL, tr bleph UL Conjunctiva/Sclera White and quiet White and quiet Cornea Clear Clear Anterior Chamber Deep and quiet, angles open Deep and quiet, angles open Iris Flat, round Flat, round Lens Clear Clear Fundus Exam Right Left Vitreous Clear Clear Disc Purty Rock and healthy Purty Rock and healthy C/D Ratio Vertical 0.25 0.25 C/D Ratio Horizontal 0.25 0.25 Macula Flat, even pigmentation Flat, even pigmentation Vessels AV 2/3, normal course and caliber AV 2/3, normal course and caliber Periphery No holes/tears/detachments 360 No holes/tears/detachments 360 Refraction Wearing Rx Sphere Cylinder Randolph Add Right +1.25 -0.50 044 Left +1.25 -0.50 110 Age: 4 yeas Type: Wearing Rx #2 Sphere Cylinder Randolph Add Right +1.50 -0.50 056 +1.75 Left +1.50 -0.75 114 +1.75 Age: 4 years Type: PAL Manifest Refraction (Subjective) Sphere Cylinder Randolph Dist VA Add Right +1.25 -0.50 040 20/20 +1.75 Left +1.25 -0.50 115 20/20 +1.75 Near VA Both: 20/20 Final Rx Sphere Cylinder Randolph Dist VA Add Right +1.25 -0.50 040 20/20 +1.75 Left +1.25 -0.50 115 20/20 +1.75 Expiration Date: 05/05/2027 Assessment and Plan Diagnoses and all orders for this visit: Hypermetropia, bilateral - Dispensed updated spec Rx Dry eyes, bilateral - Patient ed on findings. Recommended use of artifical tears 2-4x/day or PRN. Monitor. RTC in 2 years for comprehensive eye exam or sooner as needed Jazlyn Day, OD 05/05/2025, 11:03 AM [1] Current Outpatient Medications Medication Sig Dispense Refill fexofenadine (Pilar) 180 MG tablet Take 1 tablet (180 mg) by mouth Once per day. 90 tablet 0 fluticasone (Flonase) 50 MCG/ACT nasal spray Use 1-2 sprays each nostril daily. Shake gently. Before first use, prime pump. After use, clean tip and replace cap. 48 mL 0 Ketotifen Fumarate 0.035 % solution Administer 1 drop into affected eye(s) if needed in the morningand at bedtime (allergies). 10 mL 3 lisinopril 10 MG tablet Take 1 tablet (10 mg) by mouth Once per day. 90 tablet 1 sodium chloride ([place]) 0.65 % nasal spray Administer 1 spray into each nostril if needed for congestion. 15 mL 11 No current facility-administered medications for this visit. [2] Past Medical History: Diagnosis Date Endometriosis 1998 sp ADRIENNE on 2005 [3] Past Surgical History: Procedure Laterality Date CHOLECYSTECTOMY 2021 HYSTERECTOMY N/A 2005 [4] Family History Problem Relation Name Age of Onset Arrhythmia Mother Other (htn) Mother [5] Allergies Allergen Reactions [place] Hives Mangifera Indica Hives Avocado Angioedema Banana Angioedema Citric Acid Angioedema [place] Flavoring Agent (Non-Screening) Angioedema Latex Rash documented in this encounter Plan of Treatment Not on file documented as of this encounter Visit Diagnoses Diagnosis Hypermetropia, bilateral- Primary Dry eyes, bilateral documented in this encounter Additional Health Concerns Assessment Noted Time PHQ-9 Depression Total Score: 11 025 10:04 AM EDT documented as of this encounter Care Teams Rn Unit Manager Relationship Specialty Start Date End Date Carole Galeas MD [address] [place] [id number] PCP - General Internal Medicine 01/09/25 documented as of this encounter
--- NOTE | 2025-05-08 08:39 | CA_ITS ---
Transthoracic Echocardiogram Patient (Last, First, Middle): Carolyn Mauricio, Gender: Female Date of : 1975 Age: 49 Procedure Date: 05/08/2025 Procedure Type: Transthoracic Echocardiogram Location: OP Height: 167.64 cm Weight: 58.51 kg BSA: 1.66 m2 Heart Rate: 54 bpm BP: 120 / 76 mmHg Expander: TO Referring MD: Robby De Jesus MD Certified Financial Planner: Robby De Jesus MD Symptoms: I10 - Essential (primary) hypertension Study Quality: Adequate ECG Rhythm: Bradycardia Conclusions: - Normal study Findings Left Ventricle Normal left ventricular size, thickness, and systolic function. The visually estimated ejection fraction is between 60-65%. Spectral Doppler is indicative of a normal filling pattern. Peak GLS is -21.2%, within normal limits. Right Ventricle Normal right ventricular cavity size and systolic function. Atria Both atria are normal in size. There is no evidence of interatrial shunt. Aortic Valve Normal aortic valve structure and function. There is no aortic valve stenosis. There is no aortic valve regurgitation. Mitral Valve Normal mitral valve structure and function. There is trace mitral valve regurgitation. There is no mitral valve stenosis. Pulmonic Valve The pulmonic valve is likely normal. There is trace pulmonic valve regurgitation. Tricuspid Valve Normal tricuspid valve structure. There is trace tricuspid valve regurgitation. The right ventricular systolic pressure is normal. The right ventricular systolic pressure is 19 mmHg. Normal right atrial pressure. There is no evidence of pulmonary hypertension. Great Vessels All visible segments of the aorta are normal in size. The pulmonary artery was not well visualized. Venous The inferior vena cava is normal in size and collapses greater than 50% with inspiration. Pericardium/Pleural There is no evidence of pericardial effusion. Prior Study Comparison No prior study available for comparison. Measurements 2D Linear Measurements IVSd: 0.73 0.6-0.9/0.6-1.0 cm LVIDd: 4.72 3.9-5.3/4.2-5.9 cm LVIDd Index: 2.84 2.4-3.2/2.2-3.1 cm/m2 LVIDs: 2.69 2.0-3.6 cm LVPWd: 0.66 0.7-1.1 cm LA Diam: 3.40 2.7-3.8/3.0-4.0 cm LAIDs Index: 2.05 1.5-2.3 cm/m2 LV Mass: 126.93 67-162/88-224 g LV Mass Index: 76.47 43-95/49-115 g/m2 LVOT Diam: 2.00 3.0+(-)1.3 cm 2D Systolic Function EF 4C: 64.10 >55% EF 2C: 63.00 >55% EF BiP: 64.90 >55% Mitral Valve MV Pk E: 0.94 MV PK A: 0.72 MV Decel Time: 137.00 E/A: 1.30 E'Lateral: 11.00 E'Medial: 7.72 E/E' Med: 12.20 E/E' Lat: 8.60 PHT: 40.00 MVA PHT: 5.50 Decel Price: 6.86 Aortic Valve AoV Pk Mitchell: 1.49 AoV Mn Mitchell: 1.00 AoV VTI: 0.33 AoV Pk Grad: 9.00 Aov Mn Grad: 5.00 LYNN Cont.VTI: 3.09 LVOT LVOT Pk Mitchell: 1.44 LVOT Mn Mitchell: 0.85 LVOT VTI: 0.32 LVOT Pk Grad: 8.00 LVOT Mn Grad: 4.00 LVOT Diam: 2.00 LVOT Area: 3.14 Diastolic Function MV Pk E: 0.94 MV Pk A: 0.72 E/A: 1.30 E'Medial: 7.72 E/E' Med: 12.20 E' Laterial: 11.00 E/E' Lat: 8.60 Right Ventricle TAPSE (mm): 22.30 TVS' Mitchell: 12.60 Tricuspid Valve TR Pk Mitchell: 2.03 TR Pk Grad: 16.00 RA Press: 3.00 RVSP: 19.00 Great Vessels Aorta Sinus of Valsalva: 2.58 2.0-3.5 cm Ao Asc: 2.80 2.1-3.4 cm Ao Arch: 2.20 Updated in Other Vendor System with Status of Final Robby De Jesus MD electronically signed on 05/08/2025 3:59:21 PM with status of Final
--- OUTSIDE RECORDS SUMMARY | 2025-05-08 09:16 | XMS_ITS | Clinical Summary ---
Author Organization [employer] Address [address] [facility] [address] [place] [address] Care Team Providers Care Legal Paraprofessional Name Role Phone Carole Galeas MD Primary Care Provider + Allergies Active Allergy Reactions Criticality Noted Date Comments Avocado Angioedema 11/25/2024 Banana Angioedema 11/25/2024 Citric Acid Angioedema 11/25/2024 [place] Hives Medium 11/14/2022 Latex Rash Low 11/25/2024 Mangifera Indica Hives Medium 11/14/2022 Ideal Flavoring Agent (Non-Screening) Angioedema 11/25/2024 Medications lisinopril 10 MG tablet Take 1 tablet (10 mg) by mouth Once per day. 90 tablet 1 5 11/26/19 26 Active Ketotifen Fumarate 0.035 % solutionIndicati ons:Allergic [...] tablet 5 01/14/20 26 Active sodium chloride (Grainger) 0.65 % nasal sprayIndications :Allergic rhinitis due to other allergic trigger, unspecified seasonality Administer 1 spray into each nostril if needed for congestion. 15 mL 11 5 01/14/20 26 Active fluticasone (Flonase) 50 MCG/ACT nasal sprayIndications :Allergic rhinitis due to other allergic trigger, unspecified seasonality Use 1-2 sprays each nostril daily. Shake gently. Before first use, prime pump. After use, clean tip and replace cap. 48 mL Active Active Problems Problem Noted Date Diagnosed [...] sneezing and teary eyes. -prescribed odium chloride (Grainger) 0.65 % nasal spray -prescribed Ketotifen Fumarate [...] Encounters Date Type Department Care Team Description 05/05/2025 10:30 AM EDT Office Visit [facility] [address] [place], [place] [phone] Tarka, Jalzyn, OD Hypermetropia, bilateral (Primary Dx); Dry eyes, bilateral 05/05/2025 Travel 04/16/2025 Results Follow-Up [facility] [address] [place] [address] Carole Galeas MD BI Mammogram Screening Tomosynthesis Bilateral 04/15/2025 Telephone [facility] [address] [place] [address] Carole Galeas MD 04/14/2025 Telephone [facility] [address] [place], [place] [phone] Carole Galeas MD Chart Prep 03/22/2025 Refill [facility] [address] [place] [address] Joni Aquino MD Allergic rhinitis due to other allergic trigger, unspecified seasonality from Last 3 Months Immunizations Immunization Administration [...] 01/09/2025 9:04 AM EDT Plan of Treatment Health Maintenance Due Date Last Done Comments CT Colonography 1977 Colonoscopy 1977 Colorectal Cancer Screening 1977 FIT DNA/Cologuard 1977 FIT 1977 FOBT 1977 HIV Screening 1977 Lipid Panel 1977 Sigmoidoscopy 1977 Disability Screening 1977 Family Planning (PISQ) 1992 Hepatitis C Screening 1995 Hepatitis B Vaccines (1 of 3 - 19+ 3-dose series) 1996 COVID-19 Vaccine ( - 2023-2 5 season) 2025 Influenza Vaccine (#1) 2025 Depression Monitoring 07/12/2025 01/09/2025 , 01/09/2025 SDOH Screening 01/02/2026 01/02/2025 Alcohol/Substance Use Screening 01/09/2026 01/09/2025 Tobacco Screening 05/05/2026 05/05/2025 Mammogram 03/16/2027 03/16/2025 Zoster Vaccines (1 of 2) 2027 DTaP/Tdap/Td [...] Procedure Name Priority Date/Time Associated Diagnosis Comments BI MAMMOGRAM SCREENING TOMOSYNTHESIS BILATERAL Routine 03/16/2025 10:40 AM EDT Screening mammogram for breast cancer from Last 3 Months Results * BI Mammogram Screening Tomosynthesis Bilateral (03/16/2025 10:40 AM EDT) Anatomical Region Laterality Modality Breast Bilateral Mammography 03/16/2025 10:4 0 AM EDT Narrative 04/13/2025 3:21 PM EDT [address] [place] [address] Mammography Report Signed with Addenda Patient: Carolyn Mauricio MR#: [id number] 05 : 1975 Acct:[id number] Age/Sex: 49 / F ADM Date: 03/16/25 Loc: HO.MAMMO Attending Dr: Carole Galeas MD Ordering Physician: Carole Galeas MD Results: 2Be nign Findings Date of Service: 03/16/25 Follow Up: 1 Year From Orig ina Mammogram Procedure(s): MM tomosynthesis screening BI Accession Number(s): [id number] cc: Carole Galeas MD ADDENDUM ADDENDUM #2 ADDENDUM: We were unable to recontact the outside facility. As of today, the images obtained on March 16, 2025 were compared with the incomplete set of images from March 22, 2022, March 17, 2021, January 09, 2019 and January 08, 2018. According to previous examination from 2021, patient had history of right breast biopsy, which is marked with a skin marker on the images in 2021. The focal asymmetry previously described on the initial interpretation of the current screening mammogram correlates with the location of the surgical scar, therefore, patient does not need to return for additional images. Overall assessment and recommendation are modified as follows: OVERALL ASSESSMENT: BI-RADS 2 - Benign Findings RECOMMENDATION: 1 year F/U Electronically signed by: Reginald Rm MD 04/16/2025 06:13 PM EDT RP ADDENDUM #1 ADDENDUM: Addendum created to document that the prior images from outside facility are partially available for review. Another attempt will be made to obtain the complete set of images. Electronically signed by: Reginald Rm MD 04/14/2025 05:02 PM EDT RP Addendum Dictated By: Reginald Rm MD Addendum Signed By: <Electronically signed by Reginald Rm MD in OV> 04/16/251812 Addendum Cosigned By: DD/ TD/TT: 03/16/25 EXAMINATION: MM SCREENING DIGITAL BREAST TOMOSYNTHESIS, BILATERAL CLINICAL INFORMATION: Screening. Asymptomatic. COMPARISON: Prior images from [place], however, having technical problems getting them in our PACS system. At this point, the current study obtained on March 16, 2025 will be considered a new baseline study. TECHNIQUE: Digital breast tomosynthesis is performed in both the craniocaudal and mediolateral oblique views along with computer-aided detection (CAD). FINDINGS: BREAST COMPOSITION: There are scattered areas of fibroglandular density (ACR BI-RADS breast composition Category b). RIGHT BREAST: Focal asymmetry in the lateral breast, at about 9 o'clock position, anterior depth. No suspicious calcifications or other abnormalities are seen. LEFT BREAST: No significant masses, suspicious calcifications or other abnormalities are seen. MM/MM tomosynthesis screening BI IMPRESSION: RIGHT BREAST: Focal asymmetry in the lateral breast. Patient will be called back for additional imaging. However, if the prior images are successfully uploaded in our PACS system, and if the findings are stable, patient may not need additional imaging at this time. LEFT BREAST: Negative, no mammographic evidence of malignancy. Normal interval follow-up is recommended in 12 months. ASSESSMENT: BI-RADS 0 - Incomplete: Needs additional Imaging. RECOMMENDATION: 1. Additional views of the right breast 2. Targeted ultrasound if warranted after review of the additional views. 3. Radiology department staff will contact the patient for additional imaging. FOLLOW-UP: Additional Imaging required This examination should not preclude the clinical evaluation of a suspicious palpable abnormality. This patient's information was entered into a reminder system with a target due date for their next mammogram. Electronically signed by: Reginald Rm MD 04/13/2025 03:18 PM EDT RP Dictated By: Reginald Rm MD Signed By: <Electronically signed by Reginald Rm MD in OV> 04/13/25 1518 DD/ 1040 TD/TT: 03/16/25 1055 Automated Process Operator: Procedure Note Donotuseinterpreter, Image - 04/20/2025 [facility] [address] [place] [address] Mammography Report Signed with Addenda Patient: Carolyn MauricioMR#: [id number] 05 : 1975Acct:[id number] Age/Sex: 49 / FADM Date: 03/16/25 Loc: .MAMMO Attending Dr: Carole Galeas MD Ordering Physician: Carole Galeas MDResults: 2Be nign Findings Date of Service: 03/16/25Follow Up: 1 Year From [facility] Mammogram Procedure(s): MM tomosynthesis screening BI Accession Number(s): [id number] cc: Carole Galeas MD ADDENDUM ADDENDUM #2 ADDENDUM: We were unable to recontact the outside facility. As of today, the images obtained on March 16, 2025 were compared with the incomplete set of images from March 22, 2022, March 17, 2021, January 09, 2019 and January 08, 2018. According to previous examination from 2021, patient had history of right breast biopsy, which is marked with a skin marker on the images in 2021. The focal asymmetry previously described on the initial interpretation of the current screening mammogram correlates with the location of the surgical scar, therefore, patient does not need to return for additional images. Overall assessment and recommendation are modified as follows: OVERALL ASSESSMENT: BI-RADS 2 - Benign Findings RECOMMENDATION: 1 year F/U Electronically signed by: Reginald Rm MD 04/16/2025 06:13 PM EDT RP ADDENDUM #1 ADDENDUM: Addendum created to document that the prior images from outside facility are partially available for review. Another attempt will be made to obtain the complete set of images. Electronically signed by: Reginald Rm MD 04/14/2025 05:02 PM EDT RP Addendum Dictated By: Reginald Rm MD Addendum Signed By: <Electronically signed by MD Daina in OV> 04/16/251812 Addendum Cosigned By: DD/ TD/TT: 03/16/25 EXAMINATION: MM SCREENING DIGITAL BREAST TOMOSYNTHESIS, BILATERAL CLINICAL INFORMATION: Screening. Asymptomatic. COMPARISON: Prior images from [place], however, having technical problems getting them in our PACS system. At this point, the current study obtained on March 16, 2025 will be considered a new baseline study. TECHNIQUE: Digital breast tomosynthesis is performed in both the craniocaudal and mediolateral oblique views along with computer-aided detection (CAD). FINDINGS: BREAST COMPOSITION: There are scattered areas of fibroglandular density (ACR BI-RADS breast composition Category b). RIGHT BREAST: Focal asymmetry in the lateral breast, at about 9 o'clock position, anterior depth. No suspicious calcifications or other abnormalities are seen. LEFT BREAST: No significant masses, suspicious calcifications or other abnormalities are seen. MM/MM tomosynthesis screening BI IMPRESSION: RIGHT BREAST: Focal asymmetry in the lateral breast. Patient will be called back for additional imaging. However, if the prior images are successfully uploaded in our PACS system, and if the findings are stable, patient may not need additional imaging at this time. LEFT BREAST: Negative, no mammographic evidence of malignancy. Normal interval follow-up is recommended in 12 months. ASSESSMENT: BI-RADS 0 - Incomplete: Needs additional Imaging. RECOMMENDATION: 1. Additional views of the right breast 2. Targeted ultrasound if warranted after review of the additional views. 3. Radiology department staff will contact the patient for additional imaging. FOLLOW-UP: Additional Imaging required This examination should not preclude the clinical evaluation of a suspicious palpable abnormality. This patient's information was entered into a reminder system with a target due date for their next mammogram. Electronically signed by: Reginald Rm MD 04/13/2025 03:18 PM EDT RP Dictated By: Reginald Rm MD Signed By: <Electronically signed by Reginald Rm MD in OV> 04/13/25 1518 DD/ 1040 TD/TT: 03/16/25 1055 Automated Process Operator: Carole Galeas MD IMG BI PROCEDURES Edited Result - Final from Last 3 Months [facility] Care Teams Legal Paraprofessional Relationship Specialty Start Date End Date Carole Galeas MD [address] [place] [phone] PCP - General Internal Medicine 01/09/25
--- OUTSIDE RECORDS SUMMARY | 2025-05-08 09:16 | XMS_ITS | Encounter Summary ---
Author Organization [employer] Address [address] [facility] [address] [place] [address] Care Team Providers Care Reliability Manager Name Role Phone Carole Galeas MD Primary Care Provider + Encounter Details Date Type Department Care Team (Latest Contact Info) Description 04/16/2025 Results Follow-Up [facility] [address] [place] [address] Carole Galeas MD [address] [place] [address] BI Mammogram Screening Tomosynthesis Bilateral Social History Tobacco Use Types Packs/Day Years [...] PM EDT documented as of this encounter Miscellaneous Notes * Result Encounter Note - Carole Galeas MD - 04/16/2025 5:07 PM EDT Mammogram on 03/16/2025 was BI-RADS 0, please contact patient and make sure that she calls [facility] mammogram for additional views. documented in this encounter Plan of Treatment Not on file documented as of this encounter Visit Diagnoses Not on filedocumented in this encounter Additional Health Concerns Assessment Noted Time PHQ-9 Depression Total Score: 11 025 10:04 AM EDT documented as of this encounter Care Teams Reliability Manager Relationship Specialty Start Date End Date Carole Galeas MD [address] [place] [phone] PCP - General Internal Medicine 01/09/25 documented as of this encounter
--- OUTSIDE RECORDS SUMMARY | 2025-05-08 09:16 | XMS_ITS | Encounter Summary ---
Author Organization [employer] Address [address] [facility] [address] [place] [address] Care Team Providers Care [employer] Program Coordinator Name Role Phone Carole Galeas MD Primary Care Provider + Encounter Details Date Type Department Care Team (Latest Contact Info) Description 05/05/2025 Travel Social History Tobacco Use Types Packs/Day [...] as of this encounter Plan of Treatment Not on file documented as of this encounter Visit Diagnoses Not on filedocumented in this encounter Additional Health Concerns Assessment Noted Time PHQ-9 Depression Total Score: 11 025 10:04 AM EDT documented as of this encounter Care Teams [employer] Program Coordinator Relationship Specialty Start Date End Date Carole Galeas MD [address] [place] [phone] PCP - General Internal Medicine 01/09/25 documented as of this encounter
== END ==
LOC: HO.CARD 08:35
PROVIDERS: PCP Internal Medicine; Visit Provider Internal Medicine Cardiovascular Disease
DX: I10 Essential (primary) hypertension (principal)
CPT/HCPCS: 93306

== ENCOUNTER → 2025-05-08 08:39 | Outpatient (BNV) | payer MEDICAID, SELFPAY | PROVIDERS: PCP Internal Medicine; Visit Provider Internal Medicine Cardiovascular Disease | DX: I10 Essential (primary) hypertension (principal) | CPT/HCPCS: 93306; 93356 ==